=== PATIENT | female | born 1945 | race African-American/Black ===

== ENCOUNTER 2017-01-14 12:11 | Inpatient (IN) | payer OTHER, MEDICARE ==
[~2017-01-14] VITALS: Ht 162.6 cm; Wt 57.2 kg
--- NOTE | ~2017-01-14 | EKG ---
[address] [place] [address] ELECTROCARDIOGRAM REPORT Name: BRANDY BARGER Room #: 537-P ADM IN M.R.#: [id number] Admission: 01/14/17 Attend Phys: Siddharth Cook DO Discharge: Date of : 47 Report #: [id number] THIS REPORT FOR: //name// [facility] ED Test Date: 2017-01-14 Test Time: 12:38:41 Pat Name: BRANDY BARGER Department: Room: [facility] Gender: F Repairer Finished Metal: Bonnie COOPER : 1945 Requested By: Ayla Alexis Order Number: [id number] MD: Cj Camarillo Measurements Intervals [place] Rate: 99 P: 62 AR: 131 QRS: 5 QRSD: 71 T: 35 QT: 313 QTc: 402 Interpretive Statements Sinus rhythm No significant abnormality No previous ECG available for comparison Electronically Signed On 01-15-2017 9:26:03 CDT by Cj Camarillo [email or web address] <ELECTRONICALLY SIGNED> By: Cj Camarillo MD, [facility] 01/15/17 0926 1238 1238 Cj Camarillo MD, FACC /EPI
[2017-01-14 12:12] VITALS: BP 106/70
[2017-01-14 12:59] LABS: HEMATOCRIT 28.5 % (37.0-47.0); HEMOGLOBIN 9.6 gm/dL (12.0-15.0); MCH 31.3 pg (26.0-34.0); MCHC 33.7 g/dL (28.0-37.0); MCV 92.7 fL (80.0-100.0); RBC 3.07 mil/uL (4.20-5.00); RDW 14.1 % (10.5-14.5); WBC 3.5 thou/uL (4.0-11.0)
[2017-01-14 13:02] LABS: MANUAL DIFF YES
[2017-01-14 13:12] LABS: URINE BLOOD 2+ (Negative); URINE COLOR YELLOW; URINE GLUCOSE-RANDOM* NEGATIVE (Negative); URINE KETONES TRACE (Negative); URINE LEUKOCYTES-REFLEX NEGATIVE (Negative); URINE PROTEIN (DIPSTICK) 2+ (Negative); URINE SPECIFIC GRAVITY 1.025 (1.003-1.035)
[2017-01-14 13:14] LABS: ANION GAP 11 mmol/L (7-16); BUN 30 mg/dL (7-18); CALCIUM 8.4 mg/dL (8.5-10.1); CHLORIDE 109 mmol/L (98-107); CO2 21 mmol/L (21-32); CREATININE 1.6 mg/dL (0.6-1.0); GLUCOSE 87 mg/dL (74-106); SODIUM 141 mmol/L (136-145)
[2017-01-14 13:17] LABS: POTASSIUM 4.3 mmol/L (3.5-5.1)
[2017-01-14 13:19] LABS: MAGNESIUM 1.7 mg/dL (1.8-2.4); TROPONIN-I < 0.04 ng/mL (<0.04-0.07)
[2017-01-14 13:26] LABS: ICTOTEST (BILI CONFIRMATORY) Negative (Negative); URINE BILIRUBIN NEGATIVE (Negative)
[2017-01-14 14:04] LABS: FINE GRANULAR CASTS 4-10 Moderate /LPF (None Seen)
[2017-01-14 14:05] LABS: HYALINE CASTS 0-3 Few /LPF (None Seen); SQUAMOUS 0-3 Few /LPF (0-3); URINE RBC 3-10 Few /HPF (0-2); URINE WBC-REFLEX 0-5 Rare /HPF (0-5)
[2017-01-14 14:06] LABS: AMORPHOUS URATES Moderate /LPF (None Seen)
[2017-01-14 14:12] LABS: TOTAL CELL COUNT 100
[2017-01-14 14:13] LABS: PLATELET COUNT 89 thou/uL (150-400)
[2017-01-14 14:15] LABS: ANISOCYTOSIS SLIGHT
[2017-01-14 17:50] VITALS: BP 105/62
[2017-01-14 19:28] VITALS: BP 96/57
[2017-01-14] MEDS ORDERED: MEDROL DOSPAK21 TA1 (20:27)
[2017-01-14 21:54] VITALS: BP 90/49
[2017-01-15 04:13] LABS: HEMATOCRIT 26.5 % (37.0-47.0); MCHC 33.9 g/dL (28.0-37.0); MCV 91.4 fL (80.0-100.0); PLATELET COUNT 76 thou/uL (150-400); RDW 14.2 % (10.5-14.5); WBC 3.5 thou/uL (4.0-11.0)
[2017-01-15 04:20] LABS: MANUAL DIFF YES
[2017-01-15 04:34] LABS: CALCIUM 7.9 mg/dL (8.5-10.1); CREATININE 1.6 mg/dL (0.6-1.0); POTASSIUM 4.4 mmol/L (3.5-5.1)
[2017-01-15 07:34] VITALS: BP 91/57
[2017-01-15 08:37] LABS: LARGE PLATELETS FEW; PLATELET ESTIMATE DECREASED; TOTAL CELL COUNT 100
[2017-01-15 16:05] VITALS: BP 102/56
[2017-01-15 20:00] VITALS: BP 88/50
[2017-01-16] MEDS ORDERED: COZAAR 25 MG TA25 M1 PO (00:11)
[2017-01-16] MEDS ORDERED: PREDNISONE 5 MG5 M1 PO (00:12)
[2017-01-16] MEDS ORDERED: AZULFIDINE500 M1 PO (00:14)
[2017-01-16] MEDS ORDERED: CIMZIA400 MG/2 M SQ (00:19)
[2017-01-16] MEDS ORDERED: APAP500 PO (00:21)
[2017-01-16 04:00] VITALS: BP 104/54
[2017-01-16 05:02] LABS: HEMATOCRIT 24.2 % (37.0-47.0); HEMOGLOBIN 8.3 gm/dL (12.0-15.0); MCHC 34.1 g/dL (28.0-37.0); MCV 90.9 fL (80.0-100.0); PLATELET COUNT 74 thou/uL (150-400); RBC 2.67 mil/uL (4.20-5.00); WBC 2.7 thou/uL (4.0-11.0)
[2017-01-16 05:16] LABS: MANUAL DIFF YES
[2017-01-16 05:22] LABS: CALCIUM 7.6 mg/dL (8.5-10.1); CREATININE 1.3 mg/dL (0.6-1.0)
[2017-01-16 07:31] LABS: ABSOLUTE NEUTROPHILS 1.2 thou/uL (1.4-8.2); NUCLEATED RBCS 1 /100WBC; TOTAL CELL COUNT 100
[2017-01-16 07:35] VITALS: BP 108/68
[2017-01-16 09:59] LABS: URINE BILIRUBIN NEGATIVE (Negative); URINE BLOOD 1+ (Negative); URINE COLOR YELLOW; URINE GLUCOSE-RANDOM* NEGATIVE (Negative); URINE KETONES NEGATIVE (Negative); URINE LEUKOCYTES-REFLEX NEGATIVE (Negative); URINE PROTEIN (DIPSTICK) 1+ (Negative); URINE SPECIFIC GRAVITY 1.015 (1.003-1.035); URINE UROBILINOGEN 0.2 E.U./dl (0.2-1.0)
[2017-01-16 10:17] LABS: CASTS None Seen /LPF (None Seen); SQUAMOUS None Seen /LPF (0-3); URINE RBC None Seen /HPF (0-2)
[2017-01-16 10:18] LABS: CRYSTALS None Seen /LPF (None Seen); URINE WBC-REFLEX None Seen /HPF (0-5)
[2017-01-16 13:45] VITALS: BP 108/68
[2017-01-16 16:00] VITALS: BP 120/74
[2017-01-16 20:00] VITALS: BP 108/65
[2017-01-17 04:33] VITALS: BP 90/53
[2017-01-17 08:00] VITALS: BP 101/63
[2017-01-17 11:39] VITALS: BP 108/68
[2017-01-17 12:05] VITALS: BP 108/68
[2017-01-17 14:41] VITALS: BP 108/68
== END 2017-01-17 14:40 | disposition home health service (06) | DRG 682 ==
LOC: ER 12:11 → 4E 15:41 → 5S 15:41 → EROBS 15:41 → 5S 17:52 → 4E 01-16 08:48
PROVIDERS: Emergency Medicine; Family Medicine; Specialist
DX: N17.9 Acute kidney failure, unspecified (principal); E43 Unspecified severe protein-calorie malnutrition; R31.29 Other microscopic hematuria; I12.9 Hypertensive chronic kidney disease with stage 1 through stage 4 chronic kidney disease, or unspecified chronic kidney disease; M06.9 Rheumatoid arthritis, unspecified; N18.9 Chronic kidney disease, unspecified; Z68.21 Body mass index [BMI] 21.0-21.9, adult; Z79.899 Other long term (current) drug therapy
CPT/HCPCS: 10084; 10086

== ENCOUNTER 2017-06-13 21:08 | Emergency (ER) | payer OTHER, MEDICARE ==
[~2017-06-13] VITALS: Ht 162.6 cm; Wt 54.4 kg
[~2017-06-13 21:08] MED LIST: APAP500 PO; AZULFIDINE500 M1 PO; CIMZIA400 MG/2 M SQ; COZAAR 25 MG TA25 M1 PO; MEDROL DOSPAK21 TA1; PREDNISONE 5 MG5 M1 PO
[2017-06-13] MEDS ORDERED: LASIX 20 MG TAB20 MG PO ×2 (21:34→23:27)
[2017-06-13 22:52] LABS: HEMATOCRIT 26.6 % (37.0-47.0); HEMOGLOBIN 8.9 gm/dL (12.0-15.0); MCH 31.6 pg (26.0-34.0); MCHC 33.5 g/dL (28.0-37.0); MCV 94.4 fL (80.0-100.0); RBC 2.81 mil/uL (4.20-5.00); RDW 14.3 % (10.5-14.5); WBC 3.2 thou/uL (4.0-11.0)
[2017-06-13 22:59] LABS: CALCIUM 8.8 mg/dL (8.5-10.1); CREATININE 1.2 mg/dL (0.6-1.0)
== END 2017-06-13 23:35 | disposition home or self-care (01) ==
LOC: ER 21:08
PROVIDERS: Physician Assistant
DX: R60.0 Localized edema (principal); Z91.14 Patient's other noncompliance with medication regimen; M06.9 Rheumatoid arthritis, unspecified; I10 Essential (primary) hypertension

== ENCOUNTER → 2017-10-16 | Outpatient (CLI) | payer OTHER, MEDICARE ==
[~2017-10-16] MED LIST changes: +LASIX 20 MG TAB20 MG PO
== END ==
LOC: HYPER 10-09 16:06
DX: S81.802D Unspecified open wound, left lower leg, subsequent encounter (principal); L03.116 Cellulitis of left lower limb; R25.1 Tremor, unspecified; G37.9 Demyelinating disease of central nervous system, unspecified; M06.9 Rheumatoid arthritis, unspecified; M19.90 Unspecified osteoarthritis, unspecified site; I12.9 Hypertensive chronic kidney disease with stage 1 through stage 4 chronic kidney disease, or unspecified chronic kidney disease; N18.2 Chronic kidney disease, stage 2 (mild); Z86.718 Personal history of other venous thrombosis and embolism; X58.XXXD Exposure to other specified factors, subsequent encounter

== ENCOUNTER → 2017-11-21 | Outpatient (CLI) | payer OTHER, MEDICARE | LOC: HYPER 11-07 06:46 | DX: L03.116 Cellulitis of left lower limb (principal); I12.9 Hypertensive chronic kidney disease with stage 1 through stage 4 chronic kidney disease, or unspecified chronic kidney disease; N18.2 Chronic kidney disease, stage 2 (mild); M81.0 Age-related osteoporosis without current pathological fracture; G37.9 Demyelinating disease of central nervous system, unspecified; M06.9 Rheumatoid arthritis, unspecified; M19.90 Unspecified osteoarthritis, unspecified site; Z86.73 Personal history of transient ischemic attack (TIA), and cerebral infarction without residual deficits; Z98.49 Cataract extraction status, unspecified eye ==

== ENCOUNTER → 2018-06-10 | Outpatient (CLI) | payer OTHER, MEDICARE | LOC: HYPER 09:14 | DX: L97.821 Non-pressure chronic ulcer of other part of left lower leg limited to breakdown of skin (principal); I87.2 Venous insufficiency (chronic) (peripheral); L84 Corns and callosities; L29.9 Pruritus, unspecified; I12.9 Hypertensive chronic kidney disease with stage 1 through stage 4 chronic kidney disease, or unspecified chronic kidney disease; N18.2 Chronic kidney disease, stage 2 (mild); R25.1 Tremor, unspecified; M85.88 Other specified disorders of bone density and structure, other site; M81.0 Age-related osteoporosis without current pathological fracture; M06.9 Rheumatoid arthritis, unspecified; Z98.49 Cataract extraction status, unspecified eye; Z86.718 Personal history of other venous thrombosis and embolism ==

== ENCOUNTER → 2018-09-02 | Outpatient (CLI) | payer OTHER, MEDICARE | LOC: HYPER 06:46 | DX: L97.821 Non-pressure chronic ulcer of other part of left lower leg limited to breakdown of skin (principal); L84 Corns and callosities; L29.9 Pruritus, unspecified; I87.2 Venous insufficiency (chronic) (peripheral); I12.9 Hypertensive chronic kidney disease with stage 1 through stage 4 chronic kidney disease, or unspecified chronic kidney disease; N18.2 Chronic kidney disease, stage 2 (mild); R25.1 Tremor, unspecified; M85.88 Other specified disorders of bone density and structure, other site; M81.0 Age-related osteoporosis without current pathological fracture; M06.9 Rheumatoid arthritis, unspecified; Z86.718 Personal history of other venous thrombosis and embolism ==

== ENCOUNTER 2019-03-29 20:24 | Inpatient (IN) | payer OTHER, MEDICARE ==
[~2019-03-29] VITALS: Ht 152.4 cm; Wt 52.2 kg
--- NOTE | ~2019-03-29 | EMS ---
[place] [address] EMS Patient Care Report Name: BRANDY BARGER Room #: REG LEIGHANN Syed#: [id number] Admission: 03/29/19 Attend Phys: Discharge: Date of : 47 Report #: [id number] THIS REPORT FOR: //name// Report Transmitted: 03/29/2019 20:15 EMS Care Summary [place], [place]/[facility] Incident [id number] @ 03/29/2019 19:52 Incident [address] [place] [address] Patient BRANDY BARGER Female, 74 Years 1945 Patient Address [address] [place] [address] Patient History Hypertension,Arthritis,Tremors, Patient Allergies No known allergies, Patient Medications Losartan, Metoprolol, Aleve, Chief Complaint LEG PAIN Disposition Transported No Lights/[place] Dispatch Reason Sick Person Transported To [facility] Narrative M28 ARRIVES TO FIND 74 Y/O F PT COMPLAINING OF NONTRAUMATIC SWELLING AND PAIN OF HER LEFT LEG X 1 WEEK. ASSESSMENTS AND TREATMENTS NOTED. PT MOVED TO COT VIA EXTREMITY LIFT. PT MOVED TO AMBULANCE. PT TRANSPORTED. M28 [address] [address] EMS Patient Care Report Name: BRANDY BARGER Room #: REG LEIGHANN Syed#: [id number] Admission: 03/29/19 Attend Phys: Discharge: Date of : 47 Report #: [id number] ARRIVES AT DESTINATION. PT MOVED TO ROOM IN ED. PT MOVED TO BED IN ROOM VIA DRAWSHEET METHOD. PT CARE TRANSFERRED. M28 RETURNS TO SERVICE. Initial Vitals @20:08BP: 113/76,SpO2: 100, @20:10P: 102,R: 18,BP: 117/76,Pain: 10/10,GCS: 15,SpO2: 100,Revised Trauma: 12, Assessments @20:12MENTAL:No Abnormalities,SKIN:No Abnormalities,HEENT:Head/Face: No Abnormalities,Eyes: No Abnormalities,Neck/Airway: No Abnormalities,LUNG SOUNDS:General: No Abnormalities,Left Upper: No Abnormalities,Right Upper: No Abnormalities,Left Lower: No Abnormalities,Right Lower: No Abnormalities,ABDOMEN:General: No Abnormalities,Left Upper: No Abnormalities,Right Upper: No Abnormalities,Left Lower: No Abnormalities,Right Lower: No Abnormalities,PELVIS//GI:No Abnormalities,EXTREMITIES:Left Leg: Edema,Left Leg: Other,Left Arm: No Abnormalities,Right Arm: No Abnormalities,Right Leg: No Abnormalities,PULSE:NEURO:No Abnormalities,@20:13MENTAL:No Abnormalities,SKIN:No Abnormalities,HEENT:Head/Face: No Abnormalities,Eyes: No Abnormalities,Neck/Airway: No Abnormalities,LUNG SOUNDS:General: No Abnormalities,Left Upper: No Abnormalities,Right Upper: No Abnormalities,Left Lower: No Abnormalities,Right Lower: No Abnormalities,ABDOMEN:General: No Abnormalities,Left Upper: No Abnormalities,Right Upper: No Abnormalities,Left Lower: No Abnormalities,Right Lower: No Abnormalities,PELVIS//GI:No Abnormalities,EXTREMITIES:Left Leg: Other,Left Arm: No Abnormalities,Right Arm: No Abnormalities,Right Leg: No Abnormalities,PULSE:NEURO:No Abnormalities, Impression Extremity Pain Procedures @20:12ALS AssessmentResponse: UnchangedSucceeded Timeline 19:51,Call Received 19:51,Dispatch Notified 19:52,Dispatched 19:53,En Route 20:01,On Scene 20:02,At Patient 20:08,BP: 113/76 M,PULSE: ,RR: R,SPO2: 100 Ox,ETCO2: ,BG: ,PAIN: ,GCS: , 20:09,Depart Scene 20:10,BP: 117/76 M,PULSE: 102,RR: 18 R,SPO2: 100 Ox,ETCO2: ,BG: ,PAIN: 10,GCS: 15, 20:12,ALS Assessment,Response: UnchangedSucceeded, 20:21,[place] [address] EMS Patient Care Report Name: BRANDY BARGER Room #: [facility].#: [id number] Admission: 03/29/19 Attend Phys: Discharge: Date of : 47 Report #: [id number] 20:30,Call Closed Disclaimer v1.1 Copyright 2019 [employer] This EMS Care Summary contains data elements from the applicable legal record (which may be displayed differently). It is designed to provide pertinent information for the following purposes: continuity of care, clinical quality, and state data reporting. The complete legal record is available to ED staff and administrators of the receiving hospital in [facility]'s Patient Tracker. All data is provided "as is."
[~2019-03-29 20:24] MED LIST changes: -APAP500 PO; +TYLENOL EXTRA500 MG PO
[2019-03-29 20:26] VITALS: BP 122/61
[2019-03-29] MEDS ORDERED: NORCO 5-325 TA1 EAC1 PO (21:20)
[2019-03-29] MEDS ORDERED: MYSOLINE50 MG PO (21:22)
[2019-03-29] MEDS ORDERED: KLOR-CON 10 ER10 MEQ PO (21:23)
[2019-03-29] MEDS ORDERED: LOPRESSOR50 PO (21:24)
[2019-03-29] MEDS ORDERED: CHLORTHALIDONE25 MG PO (21:24)
[2019-03-29 21:57] LABS: HEMATOCRIT 27.4 % (37.0-47.0); MCH 31.8 pg (26.0-34.0); MCHC 32.9 g/dL (28.0-37.0); MCV 96.6 fL (80.0-100.0); PLATELET COUNT 62 thou/uL (150-400); RBC 2.84 mil/uL (4.20-5.00); RDW 17.2 % (10.5-14.5)
[2019-03-29 22:06] LABS: CALCIUM 8.5 mg/dL (8.5-10.1); CREATININE 1.8 mg/dL (0.6-1.0); POTASSIUM 4.8 mmol/L (3.5-5.1)
[2019-03-29 22:33] LABS: ABSOLUTE NEUTROPHILS 3.7 thou/uL (1.4-8.2); ANISOCYTOSIS 1+; LARGE PLATELETS FEW; PLATELET ESTIMATE DECREASED
[2019-03-29 23:35] VITALS: BP 101/54
[2019-03-30 00:32] VITALS: BP 105/57
[2019-03-30 00:40] VITALS: BP 115/62
[2019-03-30 04:23] LABS: HEMATOCRIT 22.4 % (37.0-47.0); HEMOGLOBIN 7.4 gm/dL (12.0-15.0); MCH 31.7 pg (26.0-34.0); MCHC 32.9 g/dL (28.0-37.0); MCV 96.3 fL (80.0-100.0); RBC 2.33 mil/uL (4.20-5.00); RDW 16.9 % (10.5-14.5); WBC 4.4 thou/uL (4.0-11.0)
[2019-03-30 04:40] LABS: CALCIUM 7.7 mg/dL (8.5-10.1); CREATININE 1.7 mg/dL (0.6-1.0); POTASSIUM 4.1 mmol/L (3.5-5.1)
[2019-03-30 06:29] VITALS: BP 126/61
[2019-03-30 07:15] VITALS: BP 100/47
--- NOTE | 2019-03-30 08:42 | NUR ---
ADMIT PT ADMITTED TO ROOM 453 FROM ED WITH LEFT FOOT VENOUS STASIS ULCER. ORDERS REVIEWED AND INITIATED, PT ORIENTED TO ROOM CALL LIGHT SYSTEM AND POC. CONSULTS CALLED IVF'S STARTED CONTINUE POC.
[2019-03-30 14:36] VITALS: BP 115/58
--- NOTE | 2019-03-30 14:40 | NUR ---
PATIENT ALERT X3, PAIN MANAGED WITH MEDICATION, REPOSITIONED TOLERATED. DRESSING C/D/I PICTURE TAKEN BY NIGHT NURSE. FALL PRECAUTIONS IN PLACE. FAMILY BEDSIDE. CALL LIGHT IN REACH.
[2019-03-30 20:30] VITALS: BP 153/60
--- NOTE | 2019-03-31 04:13 | NUR ---
Pt. rested quietly during the night when checked on during frequent rounds. She did c/o left leg wound pain and was medicated (see emar) with some relief noted. Bed alarm is on.
[2019-03-31 05:09] LABS: HEMATOCRIT 24.2 % (37.0-47.0); HEMOGLOBIN 7.9 gm/dL (12.0-15.0); MCH 31.3 pg (26.0-34.0); MCHC 32.6 g/dL (28.0-37.0); MCV 96.3 fL (80.0-100.0); RBC 2.52 mil/uL (4.20-5.00); RDW 16.6 % (10.5-14.5)
[2019-03-31 07:27] VITALS: BP 142/64
--- NOTE | 2019-03-31 07:30 | HC ---
[facility] [place] [address] CONSULTATION Name: BRANDY BARGER Room #: 453-P ADM IN M.R.#: [id number] Admission: 03/29/19 Attend Phys: Noel Sher MD Discharge: Date of : 47 Report #: [id number] THIS REPORT FOR: //name// CC: FAM unknown Noel Sher DATE OF SERVICE: 03/30/2019 INFECTIOUS DISEASE CONSULTATION ATTENDING PHYSICIAN: Dr. Sher. REASON FOR EVALUATION: Left lower extremity inflammatory eruption with wounds, likely a component of skin and soft tissue infection, cellulitis. HISTORY OF PRESENT ILLNESS: Chart reviewed, patient examined. This is a 74-year-old woman with known history of rheumatoid arthritis, spinal stenosis, lower extremity venous stasis insufficiency with dermatitis, who presented to the Emergency Room with complaints of progressive pain and swelling of the left lower extremity, development of relatively new ulcers, admitted difficult to ambulate. She noted had a venous ablation of the varicosity involving her left leg 03/19/2019, subsequently developed the wounds. This was done due to excessive edema. She had experienced some chills, although it is not clear if she had fevers, admitted to anorexia, poor p.o. intake. Denies significant pulmonary or gastrointestinal related complaints other than mildly elevated lactic acid of 2.5, placed empirically on antimicrobial with vancomycin. ALLERGIES: None known. MEDICATIONS: Currently include vancomycin, metoprolol, pantoprazole, p.r.n. hydrocodone. PAST MEDICAL HISTORY: As above noted, rheumatoid arthritis, hypertension, spinal stenosis, previous back surgery, C-sections x 2. SOCIAL HISTORY: Nonsmoker, no ethanol, no illicit drug use. FAMILY HISTORY: Noncontributory. REVIEW OF SYSTEMS: Otherwise unremarkable 10-point review of systems with exception of the above. PHYSICAL EXAMINATION: GENERAL: Appears somewhat chronically ill, undernourished, is pleasant, cooperative. She is not encephalopathic. She is in [id number] distress. VITAL SIGNS: Temperature max 100.3, more recently 98.1, pulse 78, respirations [address] [address] CONSULTATION Name: BRANDY BARGER Room #: 453- ADM IN M.R.#: [id number] Admission: 03/29/19 Attend Phys: Noel Sher MD Discharge: Date of : 47 Report #: [id number], blood pressure 126/61. SKIN: Warm, dry. HEENT: Normocephalic. Extraocular muscles intact. NECK: Supple. LUNGS: Diminished breath sounds, otherwise clear. HEART: Regular, has some ectopy and soft systolic murmur. ABDOMEN: Soft, nontender, nondistended. EXTREMITIES: No cyanosis. Does have lower extremity edema, did review the photographs taken of the wound over the anterior distal aspect of the leg proximal foot, moderate degree of slough. There is certainly a change consistent with chronic venous stasis insufficiency, dermatitis. GENITOURINARY AND RECTAL: Deferred. LABORATORY DATA: Electrolytes: Sodium 144, potassium 4.8, chloride 111, bicarbonate 25, anion gap of 8, BUN and creatinine 38 and 1.8, glucose of 101. Estimated GFR of 33. CRP elevated at 13.4. Venous Doppler of lower extremity showed no evidence of DVT. CBC: White count of 5.0, H and H 9.0, 27.4, platelets of 62 and 1% bands. ASSESSMENT: 1. Inflammatory eruption involving the left lower extremity. She has had recent surgery. Certainly would be concerned about skin and soft tissue infection. 2. New onset ulcer. Cultures have been collected. We will continue empiric therapy with vancomycin, presuming a Staph or strep etiology. She is not overtly toxic at this point. Clearly, she has a degree of immunosuppression. She is undernourished. She has had weight loss. Try to optimize her nutritional status at this point, continue wound care as prescribed, may well need debridement, elevation and compression when tolerable. <ELECTRONICALLY SIGNED> By: Solomon Foster MD 03/31/19 0730 0706 0801 Solomon Foster MD /nt
--- NOTE | 2019-03-31 13:57 | NUR ---
Received awake on bed. Due medications given as prescribed, able to swallow tablets w/o difficulty. A+O. With relative at bedside. On room air. Vital signs taken and recorded. With occassional incontinence, able to use bedpan to pass urine. With NS at 100cc/hr, infusing well at L AC- intact. Assisted in ADLs. With wound at Left lower leg, dressing C/D/I- a/w wound doctor's rounds and advise.
[2019-03-31 14:14] VITALS: BP 120/55
--- NOTE | 2019-03-31 15:17 | NUR ---
WOUND CONSULT; ROUNDING WITH DR JEANNETTE PÉREZ. THE LEFT MEDIAL LEG WOUND RE; VEIN OBLATION THERAPY. THE WOUND IS TENDER, CELLULITIC AND DRAINING PALE YELLOW DRAINAGE. RECOMMENDATIONS; AQUACEL AG TO WOUND BED, COVER WITH ABD, SECURE WITH KERLIX AND ANGELA WRAP. DAILY/PRN DISCUSSED WITH JIMMY
--- NOTE | 2019-03-31 16:18 | NUR ---
PT ADMITTED RELATED TO LOWER EXTREMITY VENOUS STASIS. CM REVIEWED CHART AND SPOKE WITH CARE TEAM. CM MET WITH PT AND SISTER AT BEDSIDE THIS DAY. PT IS A&O X4. CM ROLE INTRODCUED. PT INDICATED SHE LIVES IN A HOUSE WITH HER SISTER WITH 1 STEP TO ENTER AND 13 STEPS INSIDE. PT INDICATED SHE HAD USED A CANE AND A FWW TO ASSIST WITH MOBILITY MEDICAL STAFF SERVICES COORDINATOR. PT INDICATED SHE HAD [facility] IN THE PAST. PT'S SISTER HAD TOURED [facility] AND WAS INTERESTED IN REFERRAL BEING MADE THERE. CM ALSO PROVIDED SNF LIST SHOULD SKILLED POST ACUTE CARE STAY BE MORE APPROPRIATE. CM TO FOLLOW INDICATED WITH DC PLANNING.
[2019-03-31 20:35] VITALS: BP 117/57
[2019-04-01 02:13] LABS: URINE CLARITY CLEAR; URINE COLOR YELLOW
[2019-04-01 02:14] LABS: BACTERIA 1-9 Few /HPF (None Seen); MUCUS 4-6 Moderate strn/LPF (None Seen); SQUAMOUS 4-10 Moderate /LPF (0-3); URINE BILIRUBIN NEGATIVE (Negative); URINE BLOOD TRACE (Negative); URINE GLUCOSE-RANDOM* NEGATIVE (Negative); URINE KETONES NEGATIVE (Negative); URINE LEUKOCYTES NEGATIVE (Negative); URINE NITRITE NEGATIVE (Negative); URINE PROTEIN (DIPSTICK) 1+ (Negative); URINE RBC 0-2 Rare /HPF (0-2); URINE UROBILINOGEN 0.2 E.U./dl (0.2-1.0); URINE WBC 0-5 Rare /HPF (0-5)
[2019-04-01 02:15] LABS: CASTS None Seen /LPF (None Seen); CRYSTALS None Seen /LPF (None Seen)
--- NOTE | 2019-04-01 05:30 | NUR ---
Assumed care of pt @1900. pt a&ox4. pt is incont and can be cont with constant reminder to call for assistance. Pt is on iv vanco & ceft. L AC iv leaking so it was d/c. this nurse and 2 other nurses tried to insert a new iv but was unsuccessful. will try again at a later time. pt c/o of l leg pain and was medicated per emar. no s/s of distress, no fever overnight. pt has an order for a 24hr urine magnessium test which is to be started at 0800. wound dressing clean, dry and intact. vss stable. will cont to monitor
[2019-04-01 06:12] LABS: FOLIC ACID 4.8 ng/mL (8.6-58.9)
[2019-04-01 08:00] VITALS: BP 119/58
--- NOTE | 2019-04-01 14:30 | NUR ---
[facility] INDICATED THAT THEY ARE ABLE TO ACCEPT PT FOR ADMISSION ONCE MEDICALLY STABLE. CARE TEAM ANTICIPATE DC TOMORROW. PT AND SISTER FELICITA ARE AWARE AND AGREEABLE. CM TO FOLLOW INDICATED WITH DC PLANNING.
[2019-04-01 15:00] VITALS: BP 146/68
--- NOTE | 2019-04-01 17:56 | HC ---
[facility] [place] [address] CONSULTATION Name: BRANDY BARGER Room #: 453-P [facility] IN M.R.#: [id number] Admission: 03/29/19 Attend Phys: Ze Bob Discharge: Date of : 47 Report #: [id number] THIS REPORT FOR: //name// CC: FAM unknown Ze Bob DATE OF SERVICE: 03/31/2019 CHIEF COMPLAINT: Ulcer, left medial ankle. HISTORY OF PRESENT ILLNESS: This is a 74-year-old female patient with whom I am familiar from evaluation some time ago. She has a history of venous dermatitis. She was seen by a vein specialist at [facility] and underwent a venous ablation injection on 03/19/2019. She has developed increasing pain, swelling and redness in her left leg and was admitted to the hospital. I have been asked to see with regard to wound care. The patient does have some pain in her leg and states that the swelling and drainage worsened after the injection. PAST MEDICAL HISTORY: Positive for rheumatoid arthritis, spinal stenosis, hypertension. SOCIAL HISTORY: Negative for alcohol or tobacco use. FAMILY HISTORY: Noncontributory. ALLERGIES: None. MEDICATIONS: Include acetaminophen, ceftriaxone, chlorthalidone, hydrocodone, metoprolol, pantoprazole, prednisone, primidone, and vancomycin. REVIEW OF SYSTEMS: CONSTITUTIONAL: The patient denies fever, chills or weight loss. NEUROLOGICAL: The patient denies focal weakness, numbness or tingling. EYES: The patient denies visual changes, redness, or drainage. ENT: The patient denies earache, nasal drainage or sore throat. CARDIOVASCULAR: The patient denies chest pain or palpitations or diaphoresis. PULMONARY: The patient denies cough or shortness of breath. GASTROINTESTINAL: The patient denies nausea, vomiting, diarrhea or abdominal pain. ORTHOPEDIC: The patient does have pain, swelling, drainage from her left leg. Other systems in a 14-point review of systems are negative. PHYSICAL EXAMINATION: VITAL SIGNS: At this time include pulse 67, respiratory rate 18, blood pressure 120/55, temperature 98.7. [facility] [address] [place] [address] CONSULTATION Name: BRANDY BARGER Room #: 453-P [facility] IN ..#: [id number] Admission: 03/29/19 Attend Phys: Ze Bob Discharge: Date of : 47 Report #: [id number] GENERAL: This is a chronically ill-appearing female patient who appears to be in minimal distress. HEENT: Head normocephalic. Nose and throat are clear. NECK: Supple. She does have somewhat hunched over. LUNGS: Diminished. HEART: Regular rate and rhythm. ABDOMEN: Bowel sounds present. EXTREMITIES: Lower extremities demonstrate easily palpable distal pulses. There is a circular ulcer covered with a moderate amount of slough involving the left medial ankle. There is venous stasis dermatitis, warmth and some evidence of cellulitis involving the left lower leg and a small ulceration more proximal likely the injection site. Dorsalis pedis pulses 2+/4+ on both lower extremities. NEUROLOGIC: The patient is alert and does move all 4 extremities spontaneously. LABORATORY DATA: Include white blood cell count 7.0 with hemoglobin of 7.9, hematocrit 24.2. Sodium 145, potassium 4.1, chloride 115, CO2 of 22, BUN 36, creatinine 1.7. CLINICAL IMPRESSION: 1. Venous ulceration, left lower extremity. 2. Venous stasis dermatitis. 3. Status post venous ablation injection 03/19/2019. 4. Cellulitis, left lower extremity. RECOMMENDATIONS: Agree with current empiric antibiotics pending culture and sensitivity that was obtained yesterday. We will recommend silver alginate to the areas of open ulceration and gentle compression with Kerlix and Robert wrap. Recommend elevation of the extremities, nutritional support, PT, OT as she can tolerate. I appreciate being asked to see her in consultation. <ELECTRONICALLY SIGNED> By: Sergey Hernandez MD 04/01/19 1756 1731 1311 Sergey Hernandez MD /nt
--- NOTE | 2019-04-01 18:00 | NUR ---
ASSUMED CARE OF PATIENT AT 0715, PATIENT ALERT AND X 3, PATIENT IS TOTAL CARE, WITH SET UP FOR MEALS. PATIENT C/O PAIN WITH LEFT LEG MOST OF THE DAY. WOUND CARE SAW THE PATIENT, AND CHANGED WOUND CARE ORDERS. PATIENT CONTINUES TO RECEIVE IV ANTIBIOTICS, FOLLEWED BY DR JOHANSEN. PATIENT IS INCONTINENT OF B/B. 24HR URINE ORDERED, UNABLE TO OBTAIN, DUE TO PATIENT BEING INCONTINENT. PATOENT HAS RIGHT FOREARM IV IN PLACE. LEFT LEG WOUND DRESSING CHANGED PER NURSE THIS SHIFT, WOUND CARE ORDERS CHANGED, TEMP DRESSING APPLIED, WAITING ON NEW MEDICAATION, NOT DELIVERED UNTIL 1900, NIGHTSHIFT WILL APPLY MEDICATION WITH DRESSING CHANGE. MULTIPLE FAMILY MEMBERS AT BEDSIDE THROUGHOUT THE SHIFT. SPOKE WITH [facility] ABOUT ADMISSION, INFORMED HER NO DISCHARGE TODAY. WILL CONTINUE TO MONITOR.
[2019-04-01 20:08] VITALS: BP 123/58
--- NOTE | 2019-04-02 04:01 | NUR ---
Assessments completed. pt a&ox4. max assist transfer from chair to bed. pt is incont. unable to obtain 24hr urine sample due to incont. pt unable to use call light. staff anticipates needs. family and pt concern about going to rehab. they stated, pt might still be too weak for rehab. pt is a q2turn and require assistance with meals. fall prec in place. pain meds given per emar. wound dressing changed per new orders. will cont to monitor
[2019-04-02 07:30] VITALS: BP 135/67
[2019-04-02 14:22] VITALS: BP 125/57
--- NOTE | 2019-04-02 15:34 | NUR ---
PT HAS BEEN ACCEPTED FOR ADMISSION TO ONCE MEDICALLY STABLE. PT MAY BE HAVING REPEAT I&D. CM TO FOLLOW INDICATED WITH DC PLANNING.
[2019-04-02 19:32] VITALS: BP 123/54
--- NOTE | 2019-04-02 19:41 | NUR ---
ASSUMED CARE OF PATIENT AT 0715, PATIENT ALERT AND ORIENTED X3. PATIENT CONTINUES TO C/O PAIN WITH LEFT LOWER LEG, RECEIVED HYDROCODONE 1 TABLET X2 THIS SHIFT AND TYLENOL 650 MG X 1 THIS SHIFT. PATIENT WENT DOWN FOR MRI OF LEFT LOWER LEG. CONSULT FOR ORTHO CALLED, SPOKE WITH ADAM/JAUN. RECEIVED CALL BACK FROM ADAM/JAUN FOR ORTHO, PATIENT WILL BE NPO AFTER MIDNIGHT FOR DEBRIDEMENT OF LEFT LEG TOMORROW. PATIENT STARTED NEW IV ANTIBIOTIC/ZOSYN TODAY. PATIENT CONTINUES TO HAVE RIGHT FOREARM IV IN PLACE. WOUND CARE DONE AND PICTURE OF WOUND DONE. FAMILY UPDATED OF NEW ORDERS. FSMILY DONT HAVE COPY OF AD, CONSULT IN FOR CM FOR ADVANCE DIRECTIVE. WILL CONTINUE TO MONITOR.
--- NOTE | 2019-04-03 02:15 | NUR ---
ASSUMED CARE AROUND 190O. AXOX2. FEVER NOTED IN THE BEGGING OF THE SHIFT. TREATED WITH TYLENOL. TRENDING. KEPT NPO AFTER MIDNIGHT FOR SURGERY IN AM. PERSISTENT INCONTINENCE. NO S/S ACUTE DISTRESS NOTED OR REPORTED AT THIS TIME. WILL CONT TO MONITOR FOR ANY CHAANGES IN CONDITION.
[2019-04-03 03:53] LABS: HEMATOCRIT 22.8 % (37.0-47.0); HEMOGLOBIN 7.5 gm/dL (12.0-15.0); MCH 31.3 pg (26.0-34.0); MCHC 32.8 g/dL (28.0-37.0); MCV 95.3 fL (80.0-100.0); PLATELET COUNT 70 thou/uL (150-400); RBC 2.39 mil/uL (4.20-5.00); RDW 16.6 % (10.5-14.5); WBC 5.9 thou/uL (4.0-11.0)
[2019-04-03 04:15] VITALS: BP 128/59
[2019-04-03 07:15] LABS: ABSOLUTE NEUTROPHILS 4.6 thou/uL (1.4-8.2); PLATELET ESTIMATE DECREASED
[2019-04-03 07:16] LABS: ANISOCYTOSIS 1+; LARGE PLATELETS FEW
[2019-04-03 08:00] VITALS: BP 133/62
[2019-04-03 09:51] LABS: CALCIUM 7.8 mg/dL (8.5-10.1); CREATININE 1.4 mg/dL (0.6-1.0); POTASSIUM 4.7 mmol/L (3.5-5.1)
--- NOTE | 2019-04-03 15:56 | NUR ---
PT LEFT FOR PRE-OP AROUND 1100 AND RETURNED APPROXIMATELY 1400. PT IS CALM AND DROWSY BUT EASLIY AROUSABLE. FAMILY IS AT BEDSIDE
[2019-04-03 16:13] VITALS: BP 130/83
--- NOTE | 2019-04-03 17:56 | NUR ---
PT C/O LLE PAIN. PT DROWSY. TYLENOL GIVEN INSTEAD OF HYDROCODONE. PT'S FOOT REMAINS WARM WITH A PALPABLE 2+ PULSE.
[2019-04-03 19:18] VITALS: BP 131/67
[2019-04-03 23:41] VITALS: BP 129/65
[2019-04-04 03:25] VITALS: BP 141/61
[2019-04-04 05:37] LABS: HEMATOCRIT 25.1 % (37.0-47.0); HEMOGLOBIN 8.2 gm/dL (12.0-15.0)
[2019-04-04 05:41] LABS: POTASSIUM 4.7 mmol/L (3.5-5.1)
--- NOTE | 2019-04-04 06:33 | NUR ---
ASSUMED CARE AROUND 1899. AXOX3. PAIN TX PER MD ORDER. LOW GRADE FEVER TX WITH TYLENOL. LLE DRESSING CDI. NO S/S ACUTE DISTRESS NOTED OR REPORTED AT THIS TIME. WILL CONT TO MONITOR FOR ANY CHANGES IN CONDITION.
[2019-04-04 08:00] VITALS: BP 122/67
[2019-04-04 14:12] VITALS: BP 115/64
--- NOTE | 2019-04-04 14:23 | NUR ---
PT HAD REPEAT I&D TOMORROW. CARE TEAM ANTICIPATES THAT PT WILL LIKELY BE MEDICALLY STABLE TO DISCHARGE TO [facility] SUNDAY. CM TO FOLLOW INDICATED WITH DC PLANNING.
--- NOTE | 2019-04-04 14:51 | NUR ---
Nutrition: Following for oral intake, supplement usage. Pt has been eating 50-75% of some recent meals this week, with a couple meal refusals here and there. Despite these meal refusals at times, pt has been drinking 100% of 2 supplements daily. 2 Ensure Enlives daily adds an extra 700 kcals, 40g protein helping to make up for any missed/low intake meals. She was NPO/on clear liquids yesterday briefly, but able to resume solid PO of heart healthy diet this AM. Reports eating decently for lunch. Reminded pt of main goal to prioritize her protein first through meat, dairy, eggs, nut butter, and Ensure - leaving other side dishes for last. With diet order changes, supplement order was dc'ed. Plan to resume Ensure Enlive BID today. Per chart, pt has been accepted to rehab [facility] once medically stable. Despite sporadic po intake at times, changing to low nutrition risk given success with added supplement intervention/appetite progress. Will reassess upon later rehab transfer too.
--- NOTE | 2019-04-04 16:13 | NUR ---
PATIENT ALERT AND ORIENTED X 4. VERY PLEASANT AND COOPERATIVE. HYDROCODONE HELPFUL FOR LEFT LEG/FOOT PAIN. ON BEDREST. SAT UP ON SIDE OF BED WITH PHYSICAL THERAPY. TOLERATING DIET. HAD LARGE BM THIS AM. REMAINS INCONTINENT. PERICARE GIVEN. NO SKIN BREAKDOWN NOTED. WOUND CARE APPLIED WOUND VAC TO LEFT LOWER LEG/ANKLE. TURNED Q2H. OFF LOADED HEELS. NO PLANS TO DISCHARGE THIS WEEKEND. FALL PRECAUTIONS IN PLACE.
[2019-04-04 19:52] VITALS: BP 141/59
--- NOTE | 2019-04-05 04:19 | NUR ---
Pt. has rested quietly during the night when checked on during frequent rounds. She has been offered pain meds several times during the shift, but pt. denies needing anything for pain. Pt. turned and repositioned for comfort. Wound vac and dressing to left ankle area is intact. Bed alarm is on.
[2019-04-05 05:37] VITALS: BP 143/66
[2019-04-05 07:42] VITALS: BP 129/59
[2019-04-05 15:00] VITALS: BP 135/70
[2019-04-05 19:29] VITALS: BP 153/78
--- NOTE | 2019-04-05 20:21 | NUR ---
ASSUMED CARE OF PATIENT AT 0715, PATIENT ALERT AND ORIENTED. PATIENT ON BEDREST. C/O PAIN WITH LEFT LOWER LEG, RECEIVED HYDROCODONE 1 TABLET GIVEN X 2 THIS SHIFT. PATIENT HAS WOUND VAC TO LEFT LOWER LEG, DRESSING C/D/I. PATIENT HAS FEMALE CATHETER IN PLACE, HAS BEEN CHANGED X 3 THIS SHIFT DUE TO STOOL NOTED ON THE CATHETER. PATIENT HAS RIGHT AC IV IN PLACE, RECEIVING IV ANTIBIOTICS/ZOSYN. DAUGHTER AT BEDSIDE PART OF THE SHIFT. DR LINO HERE TO DAY, STATES PATIENT MAY GO TO REHAB ON SUNDAY. WILL CONTINUE TO MONITOR. PATIENT REFUSED BATH TODAY.
[2019-04-06 05:15] VITALS: BP 126/63
--- NOTE | 2019-04-06 05:25 | NUR ---
Pt. rested quietly during the night when checked on during frequent rounds. Po tylenol given left leg pain/low grade temperature (see emar) with some relief noted. Also, hydrocodone given later for c/o left leg pain (see emar) with some relief of pain. She has been turned and repositioned. Female external catheter is in place. Wound vac and dressing to left ankle area is intact. Bed alarm is on.
[2019-04-06 07:00] VITALS: BP 116/61
[2019-04-06 15:27] VITALS: BP 104/68
[2019-04-06 18:24] LABS: HEMATOCRIT 23.9 % (37.0-47.0); HEMOGLOBIN 7.9 gm/dL (12.0-15.0); MCH 31.4 pg (26.0-34.0); MCHC 33.1 g/dL (28.0-37.0); MCV 94.9 fL (80.0-100.0); RBC 2.52 mil/uL (4.20-5.00); RDW 15.6 % (10.5-14.5); WBC 6.6 thou/uL (4.0-11.0)
--- NOTE | 2019-04-06 19:36 | NUR ---
ASSUMED CARE 0700, ALERT X3, SLEEPY AND WEAK, TURNED 2QHOURS TOLERATED. EXTERNAL FEMALE CATH IN PLACE. BM TODAY. PAIN MANAGED WITH MEDICATIONS, DECREASE APTITITE. ENCOURAGED SUPPLEMNT. WOUND VAC IN PLACE DRESSING C/D/I. CALL LIGHT IN REACH. STAFF TO ANTICIPATE NEEDS. FALL PRECAUTIONS IN PLACE.
[2019-04-06 19:40] VITALS: BP 116/67
[2019-04-07 03:46] VITALS: BP 138/81
--- NOTE | 2019-04-07 05:26 | NUR ---
Pt. rested quietly during the night when checked on during frequent rounds. She c/o left lower extremity pain and has been medicated for pain (see emar) with some relief noted. Wound vac and dressing intact to left lower extremity. Pt. turned and repositioned. Bed alarm is on.
[2019-04-07 07:21] VITALS: BP 124/73
[2019-04-07] MEDS ORDERED: CEFEPIME 22 GM/100 M IV (09:51)
[2019-04-07] MEDS ORDERED: ZINC SULFATE 2220 M1 PO (09:52)
[2019-04-07] MEDS ORDERED: PREDNISONE 5 MG5 M1 PO (09:53)
[2019-04-07] MEDS ORDERED: PROTONIX 20 MG20 M1 PO (09:53)
[2019-04-07] MEDS ORDERED: VITAMINC500 PO (09:53)
[2019-04-07] MEDS ORDERED: FOLIC ACID1 MG PO (09:53)
--- NOTE | 2019-04-07 12:09 | NUR ---
PT ALERT, PAIN MANAGED WITH MEDICATIONS, WOUND VAC C/D/I, WILL DC [facility]. ATE 50% OF MORNING MEAL 100% SUPPLIMENT. FAMILY BEDSIDE. REPORTED OFF TO REHAB NURSE. SLOW PROGRESSION. FALL PRECAUTIONS IN PLACE.
[2019-04-08 12:11] LABS: URINE MAGNESIUM-mg/24hr 35.2 mg/24 hr (12.0-293.0); URINE MAGNESIUM-mg/dl 6.4 mg/dL (Not Estab.)
--- NOTE | 2019-04-25 14:30 | O ---
[facility] [place] [address] OPERATIVE REPORT Name: BRANDY BARGER Room #: 453-P [facility] IN M.R.#: [id number] Admission: 03/29/19 Attend Phys: Ze Bob Discharge: 04/07/19 Date of : 47 Report #: [id number] THIS REPORT FOR: //name// CC: FAM unknown Ze Bob DATE OF SERVICE: 04/03/2019 PREOPERATIVE DIAGNOSIS: Left ankle chronic wound and abscess. POSTOPERATIVE DIAGNOSIS: Left ankle chronic wound and abscess. PROCEDURE: Left ankle distal leg abscess irrigation and debridement. SURGEON: Kali Naik M.D. ANESTHESIA: General. ESTIMATED BLOOD LOSS: Minimal. DRAINS: No drains. The wound was packed open. COMPLICATIONS: There were no complications. DESCRIPTION OF PROCEDURE: The patient brought to the operating room where she was placed under general anesthesia. Once under adequate general anesthesia, her left lower extremity was prepped and draped in sterile manner. The extremity was elevated and tourniquet placed to 300 mmHg. An incision proximal to the patient's wound was made with abundant purulence emanating from the leg at that point. There was a definite pocket of purulence there, which was extended down to the wound itself. The necrotic tissue and the wound was then debrided with Clark scissors and completely removed. This was down to the fascia of the leg. Once complete, the wound was irrigated copiously with normal saline with pulsatile lavage. The wound was then closed proximally with 2-0 nylon distally, was left open and packed. The wound was dressed with a wet to dry dressing, ABDs and an Robert bandage. Tourniquet was let down at 15 minutes. Toes were pink and warm with good capillary refill. There were no complications from the procedure. The patient tolerated the procedure well and went to recovery room without incident. <ELECTRONICALLY SIGNED> By: Kali Naik MD 04/25/19 1430 1320 [id number] Kali Naik MD /nt
== END 2019-04-07 14:31 | DRG 853 ==
LOC: ER 20:24 → EROBS 23:15 → 4W 23:15
PROVIDERS: Anesthesiology; Emergency Medicine; Nurse Practitioner; Nurse Practitioner Family; Orthopaedic Surgery Foot and Ankle Surgery; Specialist; ADMIT Hospitalist
PROC: 0JBP0ZZ Excision of Left Lower Leg Subcutaneous Tissue and Fascia, Open Approach (ICD-10-PCS; principal; 2019-04-03)
DX: A41.9 Sepsis, unspecified organism (principal); E43 Unspecified severe protein-calorie malnutrition; L03.116 Cellulitis of left lower limb; N17.9 Acute kidney failure, unspecified; L02.416 Cutaneous abscess of left lower limb; I87.2 Venous insufficiency (chronic) (peripheral); N18.3 Chronic kidney disease, stage 3 (moderate); I12.9 Hypertensive chronic kidney disease with stage 1 through stage 4 chronic kidney disease, or unspecified chronic kidney disease; R25.1 Tremor, unspecified; B96.4 Proteus (mirabilis) (morganii) as the cause of diseases classified elsewhere; D69.6 Thrombocytopenia, unspecified; B96.5 Pseudomonas (aeruginosa) (mallei) (pseudomallei) as the cause of diseases classified elsewhere; B95.4 Other streptococcus as the cause of diseases classified elsewhere; B95.2 Enterococcus as the cause of diseases classified elsewhere; M06.9 Rheumatoid arthritis, unspecified; Z68.22 Body mass index [BMI] 22.0-22.9, adult; Z98.891 History of uterine scar from previous surgery; Z79.899 Other long term (current) drug therapy; Z23 Encounter for immunization
CPT/HCPCS: 10040; 50010; 50101; 50386; 57091; 62110; 62900; 70005

== ENCOUNTER 2019-04-01 11:50 | Inpatient (IN) | payer OTHER, MEDICARE ==
[~2019-04-01] VITALS: Ht 162.6 cm; Wt 54.2 kg
[~2019-04-01 11:50] MED LIST changes: +CHLORTHALIDONE25 MG PO; +KLOR-CON 10 ER10 MEQ PO; +LOPRESSOR50 PO; +MYSOLINE50 MG PO; +NORCO 5-325 TA1 EAC1 PO
[2019-04-07] MEDS ORDERED: CEFEPIME 22 GM/100 M IV (09:51)
[2019-04-07] MEDS ORDERED: ZINC SULFATE 2220 M1 PO (09:52)
[2019-04-07] MEDS ORDERED: PREDNISONE 5 MG5 M1 PO (09:53)
[2019-04-07] MEDS ORDERED: FOLIC ACID1 MG PO (09:53)
[2019-04-07] MEDS ORDERED: VITAMINC500 PO (09:53)
[2019-04-07] MEDS ORDERED: PROTONIX 20 MG20 M1 PO (09:53)
[2019-04-07 14:30] VITALS: BP 121/62
[2019-04-07 19:34] VITALS: BP 123/57
--- NOTE | 2019-04-07 19:45 | NUR ---
PT ADMITTED TO ROOM 511 FOR LLE CELLULITIS WITH POSSIBLE SEPSIS AND MEDICAL COMPLEXITY WITH GENERAL DEBILITY. NOTIFIED WOUND DOCTOR CAME WITH WOUND NURSE. ADMISSION PICTURE TAKEN AND WOUND NURSE CAME CHANGE WOUND VAC. PT ALERT AND ORIENTED X3, LITTLE FORGETFUL. VITALS STABLE ON RA. C/O LEFT ANKLE PAIN 6/10, PRN HYDROCODONE GIVEN. REASSESSMENT PER CHART. IV SL ON RIGHT AC. CONTINUE TO BE ON CEFEPIN ABT FOR ULCER INFECTION HAS LOOSE STOOL INCONT THIS EVENING. ASSISTED TO BED AND CLEANSED UP WITH 3X STAFF. SKIN ON BUTTOCK INTACT AT THIS MOMENT. ENCOURAGE PT TO TURN WHILE IN BED. GAVE REPORT TO NIGHT NURSE TO CONTINUE TO MONITOR. ORIENTED TO THE UNIT. OT/ST/PT WILL COME AND EVALUATE PT IN THE AM. DISCUSSED ABOUT REHAB SCHEDULE TO PT AND HER DAUGHTER. PT READ [facility] EDUCATION, DAUGHTER SIGNNED ADMISSION CONSENT. PHYSICIANS CONSULT CALLED. LOWER AIR LOSS MATTRESS APPLIED. ENCOURAGED PT TO TURN Q2HRS. PT WAS USING EXTERNAL FEMALE CATH ON ACUTE. GAVE REPORT TO NIGHT NURSE TO CONTINUE TO MONITOR.
--- NOTE | 2019-04-08 01:23 | NUR ---
PT ALERT AND ORIENTED X 4. WOUND VAC INTACT TO LEFT ANKLE. PT C/O PAIN IN LEFT ANKLE. REFUSED PAIN MEDS WHEN OFFERRED. INCONT OF URINE. EXTERNAL CATHETER PLACED. HANDS ARE CONTRACTED. BED ALARM ON FOR SAFETY. PT APPEARS TO BE SLEEPING ON HOURLY ROUNDS. TURNED Q2H.
[2019-04-08 06:04] LABS: RBC 2.2 mil/uL (4.20-5.00)
[2019-04-08 06:06] LABS: HEMATOCRIT 20.9 % (37.0-47.0); HEMOGLOBIN 7.1 gm/dL (12.0-15.0); MCH 32.2 pg (26.0-34.0); MCHC 33.8 g/dL (28.0-37.0); RDW 15.3 % (10.5-14.5); WBC 5.8 thou/uL (4.0-11.0)
[2019-04-08 06:12] LABS: POTASSIUM 4.3 mmol/L (3.5-5.1)
[2019-04-08 08:00] VITALS: BP 109/65
[2019-04-08 12:45] LABS: % SATURATION 24 % (20-39); IRON 20 ug/dL (50-170); TIBC 84 ug/dL (250-450)
--- NOTE | 2019-04-08 13:25 | NUR ---
team meeting, recommendation: re team
--- NOTE | 2019-04-08 15:23 | NUR ---
ASSUMED CARE OF PT AT 0800. PT IS A&OX3. IS ON ROOM AIR. REPORTS PAIN IN LEFT ANKLE THAT IS BEING MANAGED WITH ORAL PAIN MEDS. PT REPORTS INCREASED PAIN WHEN LEG IS IN DEPENDENT POSITION & WHEN STANDING. WOUND VAC INTACT. TO MEPILEX DRSG INTACT WELL. PT HAS BILAT LE EDEMA. PT IS A MAX ASSIST OF 2 TO STAND & TRANSFER. FALL PRECAUTIONS & HOURLY ROUNDING CONTINUED THIS SHIFT. LABS & VITALS REVIEWED. PT HAS GROSS TREMORS & RA & REQUIRES MOD ASSIST WITH FEEDING, DRESSING & BATHING. PT IS INCONT OF B&B. IS TURNED Q2H. BILAT LE ELEVATED. PT IS CURRENTLY SLEEPING. CALL LIGHT WITHIN REACH. ALL NEEDS MET AT THIS TIME. PT IS STABLE.
[2019-04-08 22:34] VITALS: BP 180/58
[2019-04-08 22:39] VITALS: BP 145/72
--- NOTE | 2019-04-09 00:20 | NUR ---
PT ASSESSMENT COMPLETED AND VSS. MEDS GIVEN ORDERED AND WELL TOLERATED. FALL PRECAUTIONS IN PLACE. PT REMAINS A HIGH FALL RISK AT THIS TIME. ASST WITH FREQUENT REPOSITION FOR COMFORT. SLEEPING WELL. WOUND VAC IN PLACE. WILL CONTINUE TO MONITOR FREQUENTLY.
[2019-04-09 05:31] LABS: HEMATOCRIT 20.9 % (37.0-47.0); HEMOGLOBIN 6.9 gm/dL (12.0-15.0); RBC 2.21 mil/uL (4.20-5.00)
[2019-04-09 05:33] LABS: MCH 31.2 pg (26.0-34.0); MCV 94.6 fL (80.0-100.0); RDW 15.4 % (10.5-14.5); WBC 5.1 thou/uL (4.0-11.0)
[2019-04-09 07:00] LABS: URINE BILIRUBIN NEGATIVE (Negative); URINE BLOOD 2+ (Negative); URINE CLARITY CLEAR; URINE COLOR YELLOW; URINE GLUCOSE-RANDOM* NEGATIVE (Negative); URINE KETONES NEGATIVE (Negative); URINE LEUKOCYTES-REFLEX NEGATIVE (Negative); URINE NITRITE-REFLEX NEGATIVE (Negative); URINE PROTEIN (DIPSTICK) 1+ (Negative); URINE SPECIFIC GRAVITY 1.015 (1.005-1.035); URINE UROBILINOGEN 0.2 E.U./dl (0.2-1.0)
[2019-04-09 08:00] VITALS: BP 125/57
[2019-04-09 08:44] LABS: SQUAMOUS None Seen /LPF (0-3)
[2019-04-09 08:55] LABS: BACTERIA-REFLEX 1-9 Few /HPF (None Seen); CASTS None Seen /LPF (None Seen); CRYSTALS None Seen /LPF (None Seen); URINE RBC None Seen /HPF (0-2); URINE WBC-REFLEX 0-5 Rare /HPF (0-5)
--- NOTE | 2019-04-09 13:53 | NUR ---
cm visited with pt and her sister who she lives with. per pt sister " calling me after meetings around 10 or 11 am because go to work around 1445 in afternoon, work evening/nights"/sister.
--- NOTE | 2019-04-09 14:31 | NUR ---
WOUND CARE F/U; ROUNDING WITH DR JEANNETTE PÉREZ AND MITESH ADAMS [employer] TAR AND GRAVEL ROOFER. THE WOUND LOOKS PALE AND SLOUGHY TODAY. NO ODOR. THE PATIENT HAS CONSTANT PAIN. SHE STATES NO RELIEF WITH THE SILVADINE/MORPHINE CREAM. RECOMMENDATION; FOR NOW CONTINUUE VAC THERAPY. DISCUSSED WITH JIMMY
[2019-04-09 19:30] VITALS: BP 135/60
--- NOTE | 2019-04-10 02:45 | NUR ---
PT ASSESSMENT COMPLETED AND VSS. MEDS GIVEN ORDERED AND WELL TOLERATED. FALL PRECAUTIONS IN PLACE. PT WITH 100.9 TEMP DURING SHIFT. CONTACTED THAI MASSEUR PILAR AND INFORMED HER OF THE FEVER, HGB, AND HX. PER ORDERS GAVE DOSE OF TYLENOL. WILL CONTINUE TO MONITOR FREQUENTLY. FEMALE EXTERNAL CATH IN PLACE AND WORKING WELL. SLEEPING. ASST WITH FREQUENTY REPOSITION FOR COMFORT. WOUND VAC WNL AND DSGS INTACT. WILL CONTINUE TO MONITOR FREQUENTLY.
[2019-04-10 05:46] LABS: MCH 31.4 pg (26.0-34.0); RBC 1.98 mil/uL (4.20-5.00); WBC 4.1 thou/uL (4.0-11.0)
[2019-04-10 05:48] LABS: MCHC 32.9 g/dL (28.0-37.0); MCV 95.4 fL (80.0-100.0); RDW 15.2 % (10.5-14.5)
[2019-04-10 05:59] LABS: HEMOGLOBIN 6.2 gm/dL (12.0-15.0)
[2019-04-10 06:00] LABS: HEMATOCRIT 18.9 % (37.0-47.0)
[2019-04-10 09:11] VITALS: BP 106/55
[2019-04-10 12:20] VITALS: BP 100/57; BP 131/78
[2019-04-10 18:23] LABS: HEMATOCRIT 27.8 % (37.0-47.0)
[2019-04-10 18:25] LABS: HEMOGLOBIN 9.2 gm/dL (12.0-15.0)
--- NOTE | 2019-04-10 18:58 | NUR ---
ASSUMED CARES AT 0700. PT AWAKE, ALERT AND ORIENTED*2-3. C/O LEFT LOWER EXTREMITY PAIN (AROUND THE ANKLE). BP LOW THIS AM, HOSPITALIST NOTIFIED AND ORDERS RECEIVED. PT LETHARGIC AND WEAK, CBC WORKUP CRITICALLY LOW, ORDERS RECEIVED FOR 1 UNIT BBK AND BLOOD TRANSFUSED. NO REACTION NOTED DURING OR AFTER TRANFUSION. PT WENT DOWN FOR EGD, SEE IMAGING REPORT FOR RESULTS. PT CONTINUES TO HAVE TREMORS IN BUE. PT REMAINS INCONTINENT OF BLADDER, USED THE BEDPAN FOR BOWEL. UP WITH MAX ASSIST. REPOSITIONED Q2H. Q1H VISUAL CHECKS. CALL LIGHT WITHIN REACH. FALL PRECAUTIONS IN PLACEW
[2019-04-10 19:35] VITALS: BP 133/67
[2019-04-11 00:46] LABS: HEMATOCRIT 25.1 % (37.0-47.0); HEMOGLOBIN 8.3 gm/dL (12.0-15.0)
[2019-04-11 01:00] LABS: ALBUMIN 1.2 g/dL (3.4-5.0); DIRECT BILIRUBIN < 0.1 mg/dL (<0.1-0.3); SGOT 67 U/L (15-37); SGPT 25 U/L (30-65); TOTAL BILIRUBIN 0.1 mg/dL (<0.1-1.0); TOTAL PROTEIN 6.5 g/dL (6.4-8.2)
--- NOTE | 2019-04-11 03:03 | NUR ---
ASSUMED CARE FROM DAY SHIFT FAMILY AT BEDSIDE, DISCUSSED PLAN OF CARE AND VERBALIZED UNDERSTANDING, PT TURNED EVERY 2 HOURS, FEMALE CATH PLACED FOR HS. PT RESTED WELL THROUGHOUT HOURLY ROUNDS WILL CONITNUE WITH CURRENT PLAN OF CARE.
[2019-04-11 08:51] VITALS: BP 113/57
--- NOTE | 2019-04-11 09:15 | NUR ---
WOUND CARE NOTE; VIEWED WOUND STATUS W/ DR PÉREZ, VAC OFF DUE TO LEAKAGE LAST JORDYN, NEW ORDERS TO DC VAC FOR NOW AND APPLY DAKINS, WOUND CLEANSED W/ NS, DAKINS SOAKED GAUZE APPLIED, COVERED W/ GAUZE, DAT, PT COOPERATIVE, SPECIAL POLICE OFFICER AWARE AND ASSISTED W/ MAMIE CHANGE, FAMILY AT DR ESPERANZA INFORMED OF NEW WOUND ORDERS, SEE PROCESS INTERVENTION FOR WOUND DETAILS
[2019-04-11 12:34] LABS: HEMATOCRIT 28.4 % (37.0-47.0); HEMOGLOBIN 9.4 gm/dL (12.0-15.0)
[2019-04-11 19:25] VITALS: BP 130/59
--- NOTE | 2019-04-11 20:03 | NUR ---
SALINE LOCK LEFT ANTICUBITAL PATENT USED FOR IV ABX ADMINISTRATION-DID HAVE 100.0 TEMP THIS AM-MD NOTIFIED-TYLENOL 650MG PO PRN AT 0845-TEMP RECHECK AT APPROX 1100 98.4-DOES REPORT PAIN TO LEFT ANKLE WOUND "ONLY WHEN YOU MESS WITH IT" OTHERWISE NONE-REFUSED OFFERS OF PAIN MEDS STATING "I DON'T NEED IT"WOUND NURSE AND MD ASSESSED LEFT MEDIAL ANKLE WOUND AND DRESSING CHANGED THIS AM-DRESSING CHANGE REPEATED PER ORDER AT APPROX 1630-POOR APPETITE BUT DOES TAKE SUPPLEMENTS WELL. HEEL PROTECTORS PLACED BILAT. PER ORDER-INCONTINENT CARE AND PERINEAL CARE INCLUDING BARRIER CREAM COMPLETED Q 2 WELL POSITIONING WHEN IN BED-UP IN CHAIR FOR SHORT INTERVALS AT MEALS.
--- NOTE | 2019-04-12 03:54 | NUR ---
assumed care at approx 1900 evening 04/11. pt lying in bed with head of bed elevated at change of shift. dressing to left ankle intact with prafo boots in place. pt assisted with turning and repositioning q2hrs. pt took hs meds with water tolerating well. pt appears to be sleeping soundly off and on. bed alarm on and call light in reach. will continue to monitor.
[2019-04-12 08:00] VITALS: BP 121/68
--- NOTE | 2019-04-12 18:26 | NUR ---
AAOX3 PLEASANT AND COOPERATIVE. VERY QUIET SOMEWHAT FLAT AFFECT. MANY VISITORS TODAY. ATE APPROX 50% OF MEALS. NEEDS ASSISTANCE WITH FEEDING. INCONTINENT OF 2 SMALL STOOLS TODAY. LEFT ANKLE WOUND DRESSING CHANGED WITH WET TO DRY DAKINS GAUZE WOUND EDGES WITH YELLOW ESCHAR. C/O LEFT LEG PAIN. PARTICIPATED WITH THERAPY. IV LEFT FOREARM.
[2019-04-12 19:26] VITALS: BP 103/58
--- NOTE | 2019-04-13 01:42 | NUR ---
assumed care at approx 1900 evening 04/12. pt lying in bed with head of bed elevated dozing off and on. pt awoke for hs meds taking with water tolerating well. pt given pain med for c/o pain to lower legs bilaterally. assist pt with turn q2 and adjust prafo boots. IV antibiotic infused per saline lock to left forearm. pt appears to be sleeping soundly with hourly rounding checks. bed alarm on and call light in reach. will continue to monitor.
[2019-04-13 10:18] VITALS: BP 145/74
--- NOTE | 2019-04-13 11:34 | NUR ---
ASSUMED CARE OF PT AT 0715. PT IS A&OX4. IS STABLE & ON ROOM AIR. DENIES PAIN IN THE LLE. DRSG C/D/I. PRAFO BOOTS IN PLACE. PT IS UP WITH MAX ASSIST OF 2, TRANSFER TO W/C. FALL PRECAUTIONS & HOURLY ROUNDING CONTINUED THIS SHIFT. LABS & VITALS REVIEWED. PT IS INCONT TO B&B. IS A Q2H TURN. PT IS CURRENTLY UP IN W/C. CALL LIGHT WITHIN REACH. SON AT BEDSIDE. WILL CONTINUE TO MONITOR.
[2019-04-13 19:05] VITALS: BP 114/64
--- NOTE | 2019-04-14 05:32 | NUR ---
PT ALERT AND ORIEN TIMES FOUR. C/O LEG PAIN. TURNED EVERY TWO HOURS. NO BM THIS SHIFT. TEMP DECREASED, TYLENOL GIVEN. SLOW PROGRESS, LEFT LEG WOUND LOOKING BETTER AND HEALING PER PT. DRESSING C/D/I. WILL CONTINUE TO MONITOR.
[2019-04-14 08:30] VITALS: BP 136/83
--- NOTE | 2019-04-14 19:00 | NUR ---
ASSUMED CARE OF PT AT 0715. REPORTS SLEPT GOOD LAST NIGHT. PT IS A&OX4 ABLE TO VOICE HER OWN NEEDS.VSS ON ROOM AIR. C/O LEFT ANKLE PAIN IN THE LLE. PRN HYDROCODONE GIVEN. WOUND DOCTOR AND NURSE CAME TO SEE PT. ORDERED FOR NEW DRESSING CHANGE. WOUND DRSG CHANGE ORDERED. DR. CAICEDO OK TO PUT ANGELA WRAP TO KEEP KERLIX IN PLACE. PRAFO BOOTS IN PLACE. PT IS Q TURN WHILE IN BED. UP WITH THERAPISTS. PT IS UP WITH MAX ASSIST AND PIVOT, MOVING LITTLE EASIER WITH TRANSFER TO W/C.OFFERED SUPPORTIVE CARE. ENCOURAGED PT TO VOICE HER NEEDS. ENCOURAGED PT UP TO DINNING ROOM FOR MEALS. UP FOR BREAKFAST AND LUNCH. REQUESTS TO STAY IN BED AT DINNER. DAUGHTER WAS WITH PT AND HELP WITH FEEDING. OFFERED TOILETING FREQUENTLY. PT REFUSED COLACE THIS AM. NO BM TODAY. CONTINUE TO BE ON IV ABT FOR WOUND INFECTION. WOUND DOCTOR SAID WOUND LOOKS GREAT AND CONTINUE DRESSING FROM WET TO DRY FOR COUPLE DAYS. ENCOURAGED PT TO EAT, TO DRINK AND TO MOVE AROUND TO GET BETTER. FALL PRECAUTIONS & HOURLY ROUNDING CONTINUED THIS SHIFT. GAVE REPORT TO NIGHT NURSE TO CONTINUE TO MONITOR.
[2019-04-14 19:15] VITALS: BP 132/72
--- NOTE | 2019-04-14 21:21 | HC ---
[facility] [place] [address] CONSULTATION Name: BRANDY BARGER Room #: 511-P ADM IN M.R.#: [id number] Admission: 04/07/19 Attend Phys: Saji Briscoe MD Discharge: Date of : 47 Report #: [id number] THIS REPORT FOR: //name// CC: Saji Briscoe FAM physician/PCP DATE OF SERVICE: 04/12/2019 NEUROBEHAVIORAL STATUS EXAM ATTENDING PHYSICIAN: Dr. Saji Briscoe. PATTERNMAKER HAND: Sage Rosen, PhD. CLINICAL PRESENTATION: The patient is a 74-year-old female admitted to the [facility] Rehabilitation Unit for comprehensive inpatient rehabilitation program. Her assessment on admission to the rehab unit is a medical complexity with generalized debilitation, left lower extremity cellulitis, left lower extremity venous stasis ulcer, acute renal insufficiency, rheumatoid arthritis with severe rheumatoid deformities and a history of immunosuppression, hypertension and left lower extremity venous ablation on 03/19/2019. A complete description of her medical condition and history along with medications can be found in her medical record. Neuropsychological consultation was requested to provide assistance in the assessment of cognitive and emotional status and to provide recommendations and services. Prior to this most recent admission, she was living with the assistance of her sister in her home. The patient has 2 children. She was about 20 years ago. She is a high school graduate with a 2-year Community College degree. 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 TECHNIQUES UTILIZED: Clinical interview, review of medical records, staff consultation and behavioral observation, mini mental status exam 2 standard version, NAB digits forward and digits backward test, and category fluency assessment. EXAMINATION FINDINGS: The patient was alert and cooperative with the assessment. She accurately described events surrounding her admission. There is no evidence of aphasia. Her thoughts are logical and goal oriented. There is no evidence of thought disorder. She does not report auditory or visual hallucinations. She describes symptoms to include difficulty with sleep since hospitalization, variability in word finding, increased anxiety and depression. She is worried about her recovery and the extent of help that she will require upon discharge. Her family is reported as supportive. Her performance on the MMSE 2 brief version is within normal limits with a raw [facility] [address] [place] [address] CONSULTATION Name: BRANDY BARGER Room #: 511-P [facility]#: [id number] Admission: 04/07/19 Attend Phys: Saji Briscoe MD Discharge: Date of : 47 Report #: [id number] score of 14 of 16. She is 3/3 for initial registration, 5/5 for orientation to time and 5/[address]. She was 1/3 for immediate recall of 3 items after a brief time delay and distraction. The patient was 0/5 for serial 7's, 2/2 for naming, 1/1 for repetition. Auditory comprehension was within normal limits. She could read and follow a single command. She reports upper extremity tremor and deformities of the right hand from rheumatoid arthritis and was not asked to write or copy a simple geometric design. The patient's score was 22/30, which is a T score of 30 and percentile rank of 2. Initial focused attention as assessed through digits forward was within normal limits with a T score of 48. Digits backward, measured more sustained concentration was in the mild range of impairment with a T score of 37. Category fluency was extremely low with a raw score of 9, T score of 19 and percentile rank of less than 1. The patient is presenting with deficits in cognitive functioning, most likely affecting sustained concentration and executive functioning. DIAGNOSTIC IMPRESSION: Neurocognitive disorder, unspecified, without behavior disorder -- extent to be determined, likely in the mild to moderate range. Unspecified anxiety disorder. RECOMMENDATIONS: The patient will likely require increased assistance in the management of medication, nutrition and finances upon her discharge home. A followup neuropsych assessment may be of benefit to clarify the severity of cognitive functioning. She may benefit from the use of an antidepressant to assist in the management of anxiety. Additionally, reduce as medically appropriate medication with sedating features, e.g., hydrocodone/morphine, which can have an influence on concentration and higher level thought organization. These compensatory strategies can also be of benefit to assist with issues affecting concentration and higher level thought organization. Thank you very much for allowing me to provide the consultation on this patient. <ELECTRONICALLY SIGNED> By: Sage Rosen, PhD 04/14/[id number] Sage Rosen, PhD /nt
--- NOTE | 2019-04-14 22:51 | NUR ---
PT ASSESSMENT COMPLETED AND VSS. MEDS GIVEN ORDERED AND WELL TOLERATED. FALL PRECAUTIONS IN PLACE. ASST WITH FREQUENT REPOSITION FOR COMFORT. FEMALE EXTERNAL CATH IN PLACE AND WORKING WELL. DSG ON LEFT ANKLE DRY AND INTACT. SLEEPING WELL. WILL CONTINUE TO MONITOR FREQUENTLY.
[2019-04-15 07:23] LABS: CALCIUM 7.9 mg/dL (8.5-10.1); MAGNESIUM 1.2 mg/dL (1.8-2.4); POTASSIUM 4.2 mmol/L (3.5-5.1)
[2019-04-15 07:47] VITALS: BP 129/64
[2019-04-15 08:01] LABS: HEMATOCRIT 23.4 % (37.0-47.0); HEMOGLOBIN 7.7 gm/dL (12.0-15.0); MCH 30.8 pg (26.0-34.0); MCV 93.2 fL (80.0-100.0); RBC 2.51 mil/uL (4.20-5.00); RDW 15.6 % (10.5-14.5)
[2019-04-15 09:24] LABS: ABSOLUTE NEUTROPHILS 1.9 thou/uL (1.4-8.2); HYPOCHROMASIA 1+; LARGE PLATELETS FEW; PLATELET COUNT 66 thou/uL (150-400); PLATELET ESTIMATE DECREASED
--- NOTE | 2019-04-15 13:33 | NUR ---
TEAM MTG: RETEAM, WILL ASSESS DC OPTIONS, PLAN DC 04/24/19.
[2019-04-15 20:04] VITALS: BP 122/76
[2019-04-15 20:32] VITALS: BP 131/79
--- NOTE | 2019-04-15 20:33 | NUR ---
ASSUMED CARE OF PT AT 0715. LABS REVIEWED. MAG 1.2, HGB 7.7. NOTIFIED ELADIO AND OBTAINED ORDER FOR MAG SULFATE IV. IV ON LEFT WRIST INFILTRATED. IV TEAM CALLED RESTART IV ON RIGHT UPPER ARM. MAG SULFATE 2X GIVEN AND CONTINUE TO BE ON IV ABT FOR LLE ULCER. NEW ORDER FOR SCHEDULE TYLENOL AND PRN MELATONIN FOR SLEEP. WILL GIVE REPOR TO NIGHT NURSE TO CONTINUE TO MONITOR. SHIFT NOTE: ALERT AND ORIENTED X4 VOICE HER OWN NEEDS.VSS ON ROOM AIR. C/O LEFT ANKLE PAIN IN THE LLE. PRN HYDROCODONE GIVEN. NO DRESSING CHANGE THIS SHIFT. BECAUSE NIGHT NURSE CHANGE DRESSING THIS AM, AND PT WANTS TO CHANGE TO NIGHT. DRESSING C/D/I. PRAFO BOOTS IN PLACE AT THIS MOMENT. PT IS Q TURN WHILE IN BED. UP WITH THERAPISTS. PT IS UP WITH MAX ASSIST AND PIVOT, MOVING LITTLE EASIER WITH TRANSFER TO W/C. ENCOURAGED PT TO GET UP TO DINNING ROOM FOR MEALS. SHE WAS UP FOR 3 MEALS TODAY. HAS NO BM TODAY. OFFERED TOILETING FREQUENTLY, BUT INCONTINENT 2X. OFFERED SUPPORTIVE CARE. ENCOURAGED PT TO VOICE HER NEEDS. FALL PRECAUTIONS & HOURLY ROUNDING CONTINUED THIS SHIFT. GAVE REPORT TO NIGHT NURSE TO CONTINUE TO MONITOR.
--- NOTE | 2019-04-15 23:04 | NUR ---
PT ASSESSMENT COMPLETED AND VSS. MEDS GIVEN ORDERED AND WELL TOLERATED. FALL PRECAUTIONS IN PLACE. ASST WITH REQUENT REPOSITION USING PILLOWS FOR COMFORT. FEMALE CATH IN PLACE WITH MODERATE AMOUNT OP YELLOW URINE. PRN PAIN MEDICATION HELPFUL. SLEEPING WELL AT THIS TIME. WILL CONTINUE TO MONITOR FREQUENTLY.
[2019-04-16 07:30] VITALS: BP 128/76
--- NOTE | 2019-04-16 10:27 | NUR ---
cm and nurse second shift supervisor left message for daughter wandra rt dcp. cm left snf list and hh list at bedside. pt working with therapy and does voice some concerns about might not be able to do self cares while sister out of home for work. will cont following as needed for dc needs.
--- NOTE | 2019-04-16 18:17 | NUR ---
ASSUMED CARE OF PT AT 0715. PT IS A&OX4 WITH SOME PERIODS OF FORGETFULNESS. PT REPORTED PAIN THIS AFTERNOON, WHICH WAS MANAGED WITH PO MEDICATIONS. TURNED Q2H AND BARRIER CREAM APPLIED TO COCCYX. IV IN R UPPER ARM PATENT, DRESSING C/D/I, AND WITHOUT REDNESS, WARMTH, EDEMA, OR DRAINAGE. WOUND VAC PLACED BY WOUND NURSE THIS SHIFT TO [facility] PARTICIPATED IN THERAPIES. FALL PRECAUTIONS IN PLACE AND NURSING WILL CONTINUE TO MONDITOR.
[2019-04-16 19:15] VITALS: BP 132/83
--- NOTE | 2019-04-17 01:19 | NUR ---
ASSESSMENT: PT REMAIN ALERT AND ORIENT TIMES FOUR. C/O LEFT ANKLE PAIN, PRN PAIN MEDICATION GIVEN WITH PARTIAL RELIEF. PT TURNED EVERY TWO HOURS. WOUND VAC INTACT, DRAINING DARK BROWNISH OUT PUT. VSS, AFEBRILE. NO BM THUS FAR THIS SHIFT. SLOW PROGRESS TOWARDS DC GOALS, WILL CONTINUE TO MONITOR,
--- NOTE | 2019-04-17 09:48 | NUR ---
pt sister reinaldo here for visit, spoke with her " yes got the hh list and skilled list. thank you i will look at advanced and the forum and let you know what we think. i spoke with the other madhu yesterday"/sister aurora. will cont following as needed for dc needs.
[2019-04-17 10:51] VITALS: BP 154/92
--- NOTE | 2019-04-17 14:05 | NUR ---
ASSUMED CARE OF PT AT 0715. PT IS A&OX4 AND VITAL SIGNS ARE STABLE. PT REPORTS PAIN, WHICH WAS MANAGED WITH PO MEDICATIONS. PT ALSO REPORTS NAUSEA AND EMESIS, MANAGED WITH PO MEDICAITONS AND CLEAR LIQUIDS. PT PARTICIPATING IN SOME THERAPIES, BUT REPORTS WEAKNESS AND MAY NOT PARTICPATE IN ALL THERAPIES THIS SHIFT. WOUND VAC INTACT AND FUNCTIONING APPROPRIATELY. IV IN RIGHT UPPER ARM DRESSING C/D/I, PATENT, AND SITE W/O REDNESS, DRAINAGE, EDEMA, OR WARMTH. FALL PRECAUTIONS IN PLACE AND NURSING WILL CONTINUE TO MONITOR.
[2019-04-17 20:25] VITALS: BP 102/55
--- NOTE | 2019-04-17 22:00 | NUR ---
WOUND VAC TO LATERAL LEG. IV ANTIBIOTICS TO JOSELIN PERIPHERAL SITE. TURNED TO SIDE AND PAD CHANGED. APPRECIATES EUCERIN TO ABDOMEN AND BACK
[2019-04-18 04:18] LABS: HEMATOCRIT 23.3 % (37.0-47.0); HEMOGLOBIN 7.6 gm/dL (12.0-15.0); MCH 30.5 pg (26.0-34.0); MCHC 32.5 g/dL (28.0-37.0); MCV 94.1 fL (80.0-100.0); PLATELET COUNT 57 thou/uL (150-400); RBC 2.48 mil/uL (4.20-5.00); RDW 15.7 % (10.5-14.5); WBC 2.5 thou/uL (4.0-11.0)
[2019-04-18 04:30] LABS: CALCIUM 7.7 mg/dL (8.5-10.1); CREATININE 1.1 mg/dL (0.6-1.0); MAGNESIUM 1.8 mg/dL (1.8-2.4); POTASSIUM 4.6 mmol/L (3.5-5.1)
--- NOTE | 2019-04-18 06:02 | NUR ---
ASSESSMENT: RESUMED CARE OF PT AT 2300. PT SLEEPING, DENIES PAIN. CALL BUTTON WITHIN REACH. TURNED EVERY TWO HOURS. JOSELIN IV SL. WOUND VAC INTACT. SLOW PROGRESS, WILL CONTINUE TO MONITOR,
[2019-04-18 07:06] VITALS: BP 130/78
[2019-04-18 08:20] LABS: ABSOLUTE NEUTROPHILS 1.6 thou/uL (1.4-8.2); NUCLEATED RBCS 1 /100WBC
--- NOTE | 2019-04-18 13:05 | NUR ---
WOUND CARE F/U; THE LEFT MEDIAL LEG WOUND CONTINUES TO IMPROVE. THE QUALITY OF THE WOUND BED SHOWS MARKED IMPROVEMENT WITH GRANULATION CLEARLY VISABLE. RECOMMENDATION; DR PÉREZ WILL CONTINUE THE WOUND VAC PREVIOUS. DISCUSSED WITH JIMMY
[2019-04-18 20:24] VITALS: BP 138/81
--- NOTE | 2019-04-18 21:24 | NUR ---
ASSUMED CARE OF PT AT 0715. PT IS A&OX4 AND VITAL SIGNS ARE STABLE. PT FATIGUES FREQUENTLY AND REQUIRES FREQUENT REST PERIODS. DR. GARNER CONSULTED ABOUT DECREASED WBC AND PLATELET COUNTS, NO NEW ORDERS. NURSING ENCOURAGING PT TO FREQUENTLY WASH HANDS AND WATCH PT FOR S/S OF INFECTION OR BLEEDING. IV IN RIGHT UPPER ARM PATENT, DRESSING C/D/I, SITE W/O EDEMA, REDNESS, WARMTH, OR DRAINAGE. FAMILY VISITS DURING SHIFT. PAIN MANAGED WITH PO MEDICAITONS AND PT PARTICIPATED IN SCHEDULED THERAPIES. ENCOURAGE DIETARY INTAKE. FALL PRECAUTIONS IN PLACE AND NURSING WILL CONTINUE TO MONITOR.
--- NOTE | 2019-04-19 04:06 | NUR ---
assumed care at approx 1900 evening 04/18. pt lying in bed with head of bed elevated resting. wound vac in place intact and functioning with no problems. pt assisted with turning and repositioning q2hrs. pt took hs meds with water tolerating well. pt appears to be sleeping soundly with hourly rounding. bed alarm on and call light in reach. will continue to monitor.
[2019-04-19 07:26] VITALS: BP 131/74; BP 138/78
--- NOTE | 2019-04-19 11:25 | NUR ---
ASSUMED CARE OF PT AT 0715. REPORTS SLEPT FAIR LAST NIGHT. USING FEMALE EXTERNAL LAST NIGHT HAD 550CC ABMER URINE IN SUCTIONING THIS AM. ASSIST TO BSC DURING DAY AND OFFER TOILETING FREQUENTLY. PT IS A&OX4 AND VITAL SIGNS ARE STABLE. HAD 2XBM LAST NIGHT AND HAD ONE LARGE SOFT BM WITH OT. HELD MIRALAX THIS AM PER PT REQUESTS. UP TO RECLINER AFTER OT. CONTINUE TO BE ON CIPRO FOR LLE INFECTION. WOUND VAC DRESSING INTACT AND PATENT. NURSING ENCOURAGING PT TO FREQUENTLY WASH HANDS AND WATCH PT FOR S/S OF INFECTION OR BLEEDING. IV IN RIGHT UPPER ARM PATENT, DRESSING C/D/I, SITE W/O EDEMA, REDNESS, WARMTH, OR DRAINAGE. FAMILY AT BEDSIDE. PAIN MANAGED WITH PO MEDICAITONS AND PT PARTICIPATED IN SCHEDULED THERAPIES. ENCOURAGE DIETARY INTAKE. FALL PRECAUTIONS IN PLACE AND NURSING WILL CONTINUE TO MONITOR.
[2019-04-19 19:15] VITALS: BP 120/68
--- NOTE | 2019-04-20 02:06 | NUR ---
assumed care at approx 1900 evening 04/19. pt lying in bed at change of shift sleeping. pt awoke for hs meds tolerating well. wound vac in place intact to left lower leg. pt assisted with turning and repositioning q2hrs. pt appears to be sleeping soundly with hourly rounding checks. bed alarm on and call light in reach. will continue to monitor.
[2019-04-20 07:45] VITALS: BP 141/86
--- NOTE | 2019-04-20 10:08 | NUR ---
VASCULAR ACCESS TEAM SPOKE WITH RAN MARQUEZ TO CALL AND GET ORDER TO DC PICC LINE, PT NOT GETTING ANY IV MEDS
[2019-04-20 19:27] VITALS: BP 130/72
--- NOTE | 2019-04-21 01:35 | NUR ---
PATIENT ASSESSED AND IS ALERT X 3-4. SKIN WARM AND DRY. RESP EVEN AND UNLABORED. HAS A WOUND VAC TO LEFT ANKLE THAT HAS DARK BROWNISH DRAINAGE RETURN, HAD CELLULITIS TO THAT AREA. LUNGS CTA. ON ROOM AIR. RIGHT UPPER ARM SL NOTED. VS STABLE. PAIN TO THE LEFDT ANKLE IS A RATING OF 6. REQUESTING TYLENOL. IS INCONT OF BOWEL AND BLADDER IN BED. DOES NOT ASK TO GET UP OUT OF BED TO GO TO THE [facility]. UP WITH 2 PERSON ASSIST MAX ASSIST. POSSISBLE GOING TO REHAB LTC UNIT. TAKES MEDCXIATION WHOLE WITH H20. TAMMY WELL. TURNS WITH ASSISTANCE AND THEN DOES TURN SOME ON HER OWN. REMAINS ON BEDREST TONIGHT. NO EDEMA NOTED TO LOWER EXTREMITIES. CONT PLAN OF CARE.
[2019-04-21 07:30] VITALS: BP 134/84
[2019-04-21 07:45] VITALS: BP 155/69
--- NOTE | 2019-04-21 08:00 | NUR ---
cm notified that pt and pt sister 1st choice if needed for skilled would be [facility]. cm team to send referral.
--- NOTE | 2019-04-21 10:10 | NUR ---
DISCHARGE PLANNING. PATIENT DISCHARGING TO HOME 04/24 WITH [facility] PER UNIT CM. REFERRAL FAXED TO [facility] FOR PATIENTS HH NEEDS. CALL PLACED TO [facility] TO NOTIFY OF REFERRAL AND DISCHARGE DATE. AWAITING RESPONSE. FOLLOWING.
--- NOTE | 2019-04-21 10:39 | NUR ---
ASSUMED CARE OF PT AT 0715. REPORTS DIDN'T SLEPT WELL LAST NIGHT. C/O LOOSE STOOLS STILL EVEN NO LAXATIVES GIVEN. PT CONTINUE TO BE ON CIPRO ABT FOR L ANKLE INFECTION. NOTIFIED ELADIO, OBTAINED ORDER FOR PROBIOTIC SUPPLEMENT AND PRN MELATONIN. DIDN'T HAD FEMALE EXTERNAL LAST NIGHT SINCE NIGHT RN DIDN'T KNOW SHE NEEDS ONE. ASSIST TO BSC DURING DAY AND OFFER TOILETING FREQUENTLY. PT IS A&OX4 AND VITAL SIGNS ARE STABLE. HAD 1X BM THIS AM. WOUND VAC DRESSING INTACT AND PATENT. NURSING ENCOURAGING PT TO FREQUENTLY WASH HANDS AND WATCH PT FOR S/S OF INFECTION OR BLEEDING. IV IN RIGHT UPPER ARM PATENT, DRESSING C/D/I, SITE W/O EDEMA, REDNESS, WARMTH, OR DRAINAGE. PT UP WITH PHYSICAL THERAPISTS AND WALKED COUPLE STEPS THIS AM WITH BAR RAIL. C/O PAIN ON L ANKLE MANAGED WITH EXTRA STRENGTH TYLENOL AND HER GOAL IS TO PARTICIPATE IN SCHEDULED THERAPIES. ENCOURAGE DIETARY INTAKE. FALL PRECAUTIONS IN PLACE AND NURSING WILL CONTINUE TO MONITOR.
--- NOTE | 2019-04-21 15:36 | NUR ---
WOUND CARE FOLLOW UP; ROUNDING WITH DR PÉREZ AND MITESH MARQUEZ. THE WOUND BED QUALITY CONTINUES TO IMPROVE. GRANSULATION BUDS PRESENT. NO ODOR OR ANY OTHER S/S OF INFECTION. RECOMMEDATIONS; CONTINUE POC DISCUSSED WITH RN
[2019-04-21 19:16] VITALS: BP 118/63
--- NOTE | 2019-04-22 00:38 | NUR ---
PT ASSESSMENT COMPLETED AND VSS. MEDS GIVEN ORDERED AND WELL TOLERATED. FALL PRECAUTIONS IN PLACE. SCHEDULED TYLENOL HELPFUL FOR PAIN. EXTERNAL FEMALE CATH IN PLACE AND WORKING WELL AT THIS TIME. PT SLEEPING WELL. ASST WITH REPOSITION FOR COMFORT. WILL CONTINUE TO MONITOR FREQUENTLY.
[2019-04-22 07:10] VITALS: BP 123/79
--- NOTE | 2019-04-22 09:06 | NUR ---
DOCUMENTATION FOR PT DAILY CARE TOOL DOCUMENTED AT 0902 IS A RECREATED DOCUMENT FROM PT AND OT DAILY CARE TOOLS. PURPOSE OF RECREATING DOCUMENT IS TO UPDATE LEVELS OF ASSIST FOR THE TEAM CONFERENCE REPORT.
--- NOTE | 2019-04-22 10:39 | H ---
[facility] [place] [address] HISTORY AND PHYSICAL Name: BRANDY BARGER Room #: 501-A ADM IN ..#: [id number] Admission: 04/07/19 Attend Phys: Saji Briscoe MD Discharge: Date of : 47 Report #: [id number] THIS REPORT FOR: //name// CC: Saji Briscoe [facility] physician/PCP DATE OF SERVICE: 04/07/2019 HISTORY AND PHYSICAL AND POST-ADMISSION PHYSICIAN EVALUATION HISTORY OF PRESENT ILLNESS: The patient has now been admitted for acute in-hospital inpatient rehabilitation. Please see the full admission history and physical. I agree with the history and with the physical examination findings along with the assessment and plan. The patient has a venous ulcer, left lower ankle. She underwent prior venous ablation injection to the left leg on 03/19/2019. With the venous ulcer of the left lower leg she ended up undergoing an I and D on 04/03/2019. She has venous stasis dermatitis, cellulitis of the left lower leg. She also has severe protein-calorie malnutrition. She has premorbid baseline severe rheumatoid arthritis. She has been immunosuppressed secondary to her rheumatoid arthritis medications, complicating the cellulitis noted of that left lower extremity. She is noted to have a significant decline from her premorbid functional status and has now been admitted for acute in-hospital inpatient rehabilitation. Again, please see the full history and physical and include that is the prior medical history, allergies, social history, habits. MEDICATIONS: Please see the full medication listing. REVIEW OF SYSTEMS: No current complaints of chest pain, shortness of breath or abdominal discomfort. The patient was seen earlier. PHYSICAL EXAMINATION: GENERAL: Agree with the full examination findings as noted. VITAL SIGNS: Temperature is 99.3, pulse 110, respirations 20, blood pressure 109/65. NEUROLOGIC: She is soft spoken. Limited verbalizations follows basic 1 step commands. She did wear the external catheter overnight. The patient was seen earlier. CHEST: Decreased breath sounds. CARDIOVASCULAR: Sounded regular rate and rhythm. ABDOMEN: Bowel sounds positive, nontender. EXTREMITIES: She has severe rheumatoid deformities of her hands with severe ulnar deviation and decreased manager of application development and coordination. Upper extremities revealed decreased range of motion at end range and strength probably a grade 3+/5. Lower extremities: She has a wound VAC in place left ankle. No focal calf swelling. Strength of the lower extremities, probably a grade 3 to 3+/5. She [address] [address] HISTORY AND PHYSICAL Name: BRANDY BARGER Room #: 501-A [facility] IN [facility]#: [id number] Admission: 04/07/19 Attend Phys: Saji Briscoe MD Discharge: Date of : 46 Report #: [id number] has had a definite lower level, although prior to rehabilitation transfer. She has been on max assist with basic transfers. She has been nonambulatory. Squat pivot transfers have been max assist. She has some decreased sitting balance. ASSESSMENT: A 74-year-old -[place] female with the following problem list: 1. Medical complexity with generalized debilitation. 2. Left lower extremity cellulitis. 3. Left lower extremity venous stasis ulcer, status post incision and drainage on 04/03/[address] Naik. 4. Acute renal insufficiency. 5. Rheumatoid arthritis with severe rheumatoid deformities and history of immunosuppression. 6. Hypertension. 7. Left lower extremity venous ablation on 03/19/2019. PLAN: Again, please see the full history and physical. The patient has been admitted for an acute in-hospital inpatient rehabilitation stay. From a postadmission physician evaluation perspective, there are no relevant changes since the preadmission screening. Please see the review of the prior and current medical and functional conditions and comorbidities. Please see the patient's previous and current functional status. As far as risk of complications, the patient has multiple medical comorbidities as noted above. Initial plan of care involves the interdisciplinary acute inpatient rehabilitation program with the goal of maximizing her functional independence, so she can hopefully return back to her prior living situation. She does live with her sister. Her prognosis is reasonably good with estimated length of stay probably at least 2-3 weeks. Goal would be for her to initially become as independent as possible at the wheelchair level. We will need to see how much assistance the sister can provide and see how much progress the patient conveyed. As far as potential barriers the patient has multiple medical comorbidities and decreased functional status. The patient meets diagnostic criteria for an acute in-hospital inpatient rehabilitation stay. She meets the medical necessity criteria. We will have the medical record consultant physicians involved. She does have the tolerance for therapies and has appropriate discharge goals back to the home setting. <ELECTRONICALLY SIGNED> By: Saji Briscoe MD 04/22/19 1039 1017 1117 Saji Briscoe MD /[facility]
--- NOTE | 2019-04-22 10:39 | PLAN ---
[facility] [place] [address] REHAB UNIT PLAN OF CARE Name: BRANDY BARGER Room #: 501-A ADM IN [facility]#: [id number] Admission: 04/07/19 Attend Phys: Saji Briscoe MD Discharge: Date of : 46 Report #: [id number] THIS REPORT FOR: //name// CC: Saji Briscoe [facility] physician/PCP DATE OF SERVICE: 04/09/2019 PROGRESS NOTE AND OVERALL PLAN OF CARE SUBJECTIVE: The patient is seen back today in followup. She is in no distress. Last recorded temperature is 98.9, pulse 102, respirations 18, blood pressure 145/72. She is alert. She will follow basic 1 step commands. She appears to have a reasonable appetite. She has severe rheumatoid arthritic hands, but is able to tightener and feed herself. Functionally, she transfers with max assist, bed to wheelchair. Sit to supine is max assist. Lower body dressing is dependent. Upper body is mod assist. ASSESSMENT: 1. Left lower extremity cellulitis. 2. Left lower extremity venous stasis ulcer, status post incision and drainage. She continues with the wound VAC in place. 3. Medical complex with generalized debilitation. 4. Acute renal insufficiency. 5. Rheumatoid arthritis with history of immunosuppressive therapy. 6. Hypertension. 7. Left lower extremity, status post venous ablation, 03/19/2019. 8. Severe protein-calorie malnutrition. PLAN: The overall plan of care is based on the preadmission screen, post-admission physician evaluation and information garnered from therapy assessments. 1. Estimated length of stay is probably at least 2 to 3 weeks depending upon her progress. She is at a lower functional level. 2. Anticipated interventions includes the interdisciplinary acute inpatient rehabilitation program. 3. Anticipated functional outcome would be for the patient to improve as far as basic transfers and to achieve her prior level of ADLs, so that her family can again care for her within the home setting. 4. Discharge destination would be back home with her sister. 5. Expected therapy by discipline would include PT and OT 1-1/2 hours per day [address] [address] REHAB UNIT PLAN OF CARE Name: CHARBELBRANDY J Room #: 501-A [facility] IN [facility]#: [id number] Admission: 04/07/19 Attend Phys: Saji Briscoe MD Discharge: Date of : 46 Report #: [id number] each five days a week throughout the duration of the acute inpatient rehabilitation stay. <ELECTRONICALLY SIGNED> By: Saji Briscoe MD 04/22/19 1039 [id number] 1416 Saji Briscoe MD /nt
--- NOTE | 2019-04-22 10:45 | NUR ---
ASSUME PT CARE AT 0700. PT REPORTS SLEPT BETTER WITH MELATONIN LAST NIGHT. OT CAME AND GAVE PT BATH. PT UP TO DINNING ROOM FOR BREAKFAST. HAD GOOD APPETITE THIS AM. ABLE TO FEED HERSELF THIS AM. HAS STUDENT NURSE GAVE MORNING MEDS WITH HER INSTRUCTOR. WOUND VAC DRESSING INTACT AND PATENT. OFFERED SUPPORTIVE. ENCOURAGED PT TO VOICE HER NEEDS. REASSESSMENT PER CHART. HAS CHRONIC PAIN ON L ANKLE RATES PAIN 5/10. TYLENOL SCHEDULE GIVEN. FALL PRECAUTION IN PLACE. PT IS WORKING WITH PHYSICAL THERAPIST AT [facility] AT THIS MOMENT. WILL CONTINUE TO MONITOR.
--- NOTE | 2019-04-22 12:16 | NUR ---
team meeting, recommendation: still has wound vac. [facility]st [facility] at [facility].
[2019-04-22 14:13] LABS: ABSOLUTE RETIC COUNT 0.0216 10^6/uL; HEMOGLOBIN 9.6 gm/dL (12.0-15.0); MCH 30.8 pg (26.0-34.0); MCHC 32.1 g/dL (28.0-37.0); MCV 96.1 fL (80.0-100.0); OBSERVED RETIC COUNT 0.69 % (0.6-2.6); PLATELET COUNT 76 thou/uL (150-400); RBC 3.12 mil/uL (4.20-5.00); RDW 15.9 % (10.5-14.5); WBC 3.9 thou/uL (4.0-11.0)
[2019-04-22 14:28] LABS: ALBUMIN 1.7 g/dL (3.4-5.0); CALCIUM 8.1 mg/dL (8.5-10.1); CREATININE 1.2 mg/dL (0.6-1.0); POTASSIUM 4.3 mmol/L (3.5-5.1); TOTAL BILIRUBIN 0.1 mg/dL (<0.1-1.0); TOTAL PROTEIN 8.2 g/dL (6.4-8.2)
[2019-04-22 14:59] LABS: ABSOLUTE NEUTROPHILS 2.4 thou/uL (1.4-8.2); METAMYELOCYTES 1 %
[2019-04-22 15:01] LABS: ANISOCYTOSIS 1+; TEARDROPS OCCASIONAL
--- NOTE | 2019-04-22 15:34 | NUR ---
DISCHARGE PLANNING. ANTICIPATED DISCHARGE PLANNED FOR SUNDAY, 04/24. POST ACUTE RECOMMENDED AT DISCHARGE. PATIENT REFERRAL FAXED TO [facility]. PER [facility] WILL NOT HAVE A BED AVAILABLE UNITL SUNDAY, 04/25. FOLLOWING.
[2019-04-22 19:05] VITALS: BP 145/76
--- NOTE | 2019-04-22 22:15 | NUR ---
PT ASSESSMENT COMPLETED AND VSS. MEDS GIVEN ORDERED AND WELL TOLERATED. FALL PRECAUTIONS IN PLACE. PT DID NOT WANT TO CHANGE INTO A GOWN TONIGHT. PT STATES PAIN LEVEL IS A 6. SCHEDULED TYLENOL GIVEN AND HELPFUL. ASST WITH REPOSITION FOR COMFORT. WOUND VAC INTACT AND WORKING WELL. ELEVATED LEGS ON PILLOWS. WILL CONTINUE TO MONITOR FREQUETLY.
--- NOTE | 2019-04-23 04:45 | P ---
[facility] [place] [address] PROCEDURE REPORT Name: BRANDY BARGER Room #: 501-A ADM IN [facility]#: [id number] Admission: 04/07/19 Attend Phys: Saji Briscoe MD Discharge: Date of : 46 Report #: [id number] THIS REPORT FOR: //name// CC: aSji Briscoe MD [facility] physician/PCP DATE OF SERVICE: 04/10/2019 PROCEDURE: Diagnostic esophagogastroduodenoscopy. INDICATION FOR PROCEDURE: She is here for evaluation of anemia and melena. Her hemoglobin 2 months ago was about 8 grams and now she is down to 6.2 grams. She denies any hematemesis or hematochezia. She has had dark stools intermittently over the last couple of months. She has been taking iron orally. She has noted that she has had diarrhea after all meals since she has been in the hospital. She has had a significant amount of weight loss due to lack of access to food based on her current medical condition and inability to get up and cooked meals for herself. Informed consent for this procedure was obtained prior to the administration of any medication. The risks of the procedure, which include bleeding, perforation, infection, complications of sedation and the possibility I could miss something have been explained to the patient and she has indicated her consent by signing. Anesthesia kindly provided deep sedation for this procedure. DESCRIPTION OF PROCEDURE: With the patient in the left lateral decubitus position and a sleep sedated with propofol by the anesthesia service, the Olympus upper videoscope was introduced through the upper esophageal sphincter and advanced under direct visualization to the third portion of the duodenum. Findings are noted on withdrawal of the scope. The duodenal mucosa appears normal throughout its entirety. There is bile seen in the second portion of the small intestine. Pylorus, normal mucosa. Antrum, in the antrum of the stomach, there is mild hemorrhagic gastritis, nonbleeding at the present time. The body of the stomach is coated with a bui thick material of uncertain etiology. I was able to wash it off and look at the mucosa underneath of it and it appears that the mucosa under this is normal. Cardia and fundus, normal mucosa. I saw no evidence of source of GI blood loss in the stomach at this time. Retroflex view did not reveal any hiatal hernia. The scope was withdrawn into the esophagus. The esophageal mucosa appears normal throughout its entirety as well. The scope was withdrawn. The patient went to the recovery area in stable condition. She tolerated the procedure well. IMPRESSION: [facility] [address] [place] [address] PROCEDURE REPORT Name: BRANDY BARGER Room #: 501-A [facility]#: [id number] Admission: 04/07/19 Attend Phys: Saji Briscoe MD Discharge: Date of : 46 Report #: [id number] 1. Normal esophagus and duodenum. 2. Mild hemorrhagic gastritis of the antrum of the stomach, nonbleeding. The source of bleeding is not clear from this exam. RECOMMENDATIONS: For her to be on proton pump inhibitors, specifically Protonix 40 mg IV push b.i.d. She should avoid nonsteroidal anti-inflammatory medications if at all possible. We will start her on a soft diet. We will check a stool for H. pylori antigen. Thank you very much once again for allowing me to participate in her care, Dr. Briscoe. <ELECTRONICALLY SIGNED> By: Cher Villavicencio DO 04/23/19 0445 1420 0320 Cher Villavicencio DO /nt
--- NOTE | 2019-04-23 07:29 | HC ---
[facility] [place] [address] CONSULTATION Name: BRANDY BARGER Room #: 501-A ADM IN ..#: [id number] Admission: 04/07/19 Attend Phys: Saji Briscoe MD Discharge: Date of : 46 Report #: [id number] THIS REPORT FOR: //name// CC: Matt Glasgow [facility] physician/PCP Christine Luis MD with [facility] [place] office addendum: obtained records from [facility], pt seen by Samuel Luis several years ago =for cytopenia and had bone marrow which was normal w normal cytogenetics. 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 counts now improved since 1 week ago. continue observation at this time. DATE OF SERVICE: 04/22/2019 REASON FOR CONSULTATION: Low blood counts. HISTORY OF PRESENT ILLNESS: The patient is a 74-year-old female with a history of rheumatoid arthritis for large number of years who was admitted for wound care after having a vein procedure and subsequent development of an ulceration, it is my understanding. She also had been admitted here with anemia, pancytopenia, noted to have melanotic stools, was thought probably related to iron. She had an EGD with Dr. Cher Villavicencio on about 04/10/2019 that showed some mild hemorrhagic gastritis that was nonbleeding. Also about that same time, her folate was low. She is now on replacement folate. She, here at [place], has a long-term history of anemia with a hemoglobin usually between 6.9 and 9, recently 7.6. White count usually between about 3.5 and 5 and here recently 2.5. Also, platelet count of 57; in the last admission, it has usually ranged between 54 and 90 though there are few in the 120-150 range. MCV of 94.1 during this time. The patient also reports that she has seen Dr. Samuel Luis if I understand correctly about 2 years ago at , who did a bone marrow biopsy and told her nothing else was wrong and then Dr. Glasgow, her service station attendant had wanted her to see him again recently because of worsening blood counts. The patient cannot tell me which blood counts or all of them were the reason for this consult. We asked them to get records and those are still pending. [address] [address] CONSULTATION Name: BRANDY BARGER Room #: 501-A ADM IN [facility]#: [id number] Admission: 04/07/19 Attend Phys: Saji Briscoe MD Discharge: Date of : 46 Report #: [id number] PAST MEDICAL HISTORY: The patient has a history of the rheumatoid arthritis for large number of years. She reports ____ she has been on prednisone and Humira. Also history of hypertension, chronic kidney disease; history of the hemorrhagic gastritis, nonbleeding. Also, I believe she had varicose veins and also had peripheral edema. FAMILY HISTORY: Nothing specific. She has two children. Her son has diabetes. SOCIAL HISTORY: She was a mental health aide here in town. She has been in town for about the last 60 years. Previous to this, she was in [place]. Nonsmoker, no alcohol, no street drugs. REVIEW OF SYSTEMS: The patient at this time does have some fatigue. Does have some rheumatoid arthritis pain. No swallowing troubles. Does have occasional bowel issues, but nothing significant. No blood in her urine or stool. Does have some weakness. No new skin rash though she does have the sore on her legs that is being worked on with wound care. MEDICATIONS: Currently include melatonin 10 at bedtime, MiraLax daily, docusate b.i.d. p.r.n., ciprofloxacin 750 b.i.d., mineral oil to skin, Tylenol p.r.n., propranolol 10 b.i.d., pantoprazole 40 b.i.d., prednisone 5 every 48 hours, folic acid 1 mg daily, Zofran p.r.n., zinc 220 t.i.d., metoprolol 50 b.i.d., primidone 100 mg b.i.d., hydrocodone 1 tab q.4 p.r.n. LABORATORY DATA: As mentioned labs here is notable for electrolytes, mostly normal. Creatinine has been recently 1.1 though it had been on 1.8 range earlier this admission. Earlier this admit, AST 67, will be repeated today. Alkaline phosphatase have been elevated at 245 in the past, ALT had been low at 25 in the past, these are being repeated. Albumin was 1.2 in the past, it has been checked today. Iron on 04/08/2019 was 20, with a TIBC of 84, percent saturation of 24. C-reactive protein on 03/29/2019 113. White count recently 2.5, being repeated. Hemoglobin is 7.6, MCV 94.1, RDW 15.7, platelets 57. Note that CBC and CMP being repeated today. Differential nonacute. Note that large platelets were seen. TSH not repeated for some time. Folate was 4.8 on admission, now on replacement. Vitamin B12 515 on 04/01/2019. Erythropoietin ordered and pending. UA had 2+ blood, 0-5 rbcs. IMAGING: Nothing significant at this time and note that 2 years ago, she had a CT abdomen without mention of hepatosplenomegaly or lymphadenopathy. PHYSICAL EXAMINATION: GENERAL: There is no height and weight recently reported. VITAL SIGNS: Blood pressure 123/79, respirations 14, pulse 99, temperature 98.2. MOOD: The patient is alert and conversant. NEUROLOGIC: The patient's speech and thought pattern appear to be normal. She [address] [address] CONSULTATION Name: BRANDY BARGER Room #: 501-A ADM IN ..#: [id number] Admission: 04/07/19 Attend Phys: Saji Briscoe MD Discharge: Date of : 46 Report #: [id number] is slowly moving extremities. HEENT: Oropharynx appears to be mostly clear from general exam. LYMPHATICS: No enlarged lymph nodes in the supraclavicular, cervical, axillary region. ABDOMEN: No definite masses, nontender. HEART: Appears to be regular rate. LUNGS: Clear anteriorly, symmetric. No wheezes or rhonchi. EXTREMITIES: The patient does have dressing on her lower extremity. ASSESSMENT AND PLAN: 1. Cytopenia. Now that we know the bone marrow was at , we will get records from and also check Dr. Luis's note. Still need Dr. Glasgow's recent notes to see what they thought was different. Note that here the iron appears to be replete, the B12 was normal, folate is being replaced. We will check an erythropoietin level and retic count to see if the patient's kidney disease might be impairing her red cell production. We will also await records. 2. History of rheumatoid arthritis, prednisone per others. 3. Chronic kidney disease. Cautious use of medications. 4. Status post varicose vein procedure, being followed by wound care. 5. Weakness rehabilitation. We will follow with you. <ELECTRONICALLY SIGNED> By: Mamadou Cruz MD 04/23/19 0729 0741 1228 Mamadou Cruz MD /nt
[2019-04-23 07:44] VITALS: BP 116/87
--- NOTE | 2019-04-23 08:16 | NUR ---
ASSUME PT CARE AT 0700. VSS ON RA. REPORTS SLEPT GOOD. PT REQUESTS EXTERNAL FEMAL CATH LAST NIGHT TO HELP HER SLEEP BETTER WITHOUT INTERRUPTION. PT CONT BM THIS AM, HAD SMALL BM THIS AM WITH STUDENT NURSE. PT UP TO BATHROOM AND WORK WITH OT NOW. C/O LEFT LEG PAIN RATE PAIN 10. TYLENOL AND MORNING MEDS GIVEN SCHEDULE. HELD PROPRANOLOL THIS AM FOR B/P 116/87. UP WITH MOD CARO PIVOT TO . OFFERED SUPPORTIVE CARE. ENCOURAGED PT TO PARTICIPATE WITH THERAPISTS TO GET STRONGER. WILL BE DISCHARGE ON SUNDAY TO [facility]. FALL PRECAUTION IN PLACE. CONTINUE TO MONITOR.
--- NOTE | 2019-04-23 10:01 | NUR ---
WOUND CARE F/U; rounding w/ DR PÉREZ and MITESH ADAMS RN, wound beefy red, scant drainage, no odor, healing, to cont w/ npwt, reapplied w/ good seal noted at 125mmHG cont suction, tolerated well, waitstaff captain informed of care, see process intervention for wound details recommendations; cont w/ current tx
--- NOTE | 2019-04-23 12:14 | NUR ---
chart copy ordered for dcp to skilled
[2019-04-23 19:00] VITALS: BP 138/72
--- NOTE | 2019-04-24 01:04 | NUR ---
ASSESSMENT: PT REMAIN ALERT AND ORIENT TIMES FOUR. FORGETFUL AT TIMES. VSS, AFEBRILE. TURNED EVERY TWO HOURS. REFUSED EXTRNAL CATH. ON BED GOMEZ AT THE BEGINNING OF THE SHIFT. DC TO HOME SUNDAY. NO BM THUS FAR, STATES THAT SHE FEELS THAT THE ORAL CIPRO IS MAKING HER HAVE LOOSE STOOLS, FREQUENTLY. LEFT LOWER LEG WOUND INTACT WITH WOUND VAC, C/O PAIN IN THAT AREA. PRN PAIN MEDS GIVEN WITH MINIMAL RELIEF. NO FURTHER COMPLAINTS. SLOW PROGRESS TOWARDS DC GOALS. WILL CONTINUE TO MONITOR.
[2019-04-24 07:30] VITALS: BP 121/70
--- NOTE | 2019-04-24 14:35 | NUR ---
ASSUMED CARE OF PT AT 0715. PT IS A&OX4 AND VITAL SIGNS ARE STABLE. PT DENIES PAIN AND PARTICIPATED IN SCHEDULED THERAPIES. WOUND VAC INTACT. TURNED Q2H. FALL PRECAUTIONS IN PLACE AND NURSING WILL CONITNUE TO MONITOR. INITIAL TEMP ELEVATED THIIS SHIFT, WAS RECHECKED AND WAS 98.0. FALL PRECAUTION IN PLACE AND NURSING WILL CONTINUE TO MONITOR.
--- NOTE | 2019-04-24 16:58 | NUR ---
chart copy was requested yesterday for 4w to assist with and requested again today rt no chart copy complete yet. pt will be able to go by wc van to [facility]. bedside nurse to call report to [phone]. was passed on that pt sister works tomorrow at school and would like to go with her at dc, so requested by family for dc after 1530.
[2019-04-24 20:15] VITALS: BP 140/67
--- NOTE | 2019-04-25 01:28 | NUR ---
PT ALERT AND ORIENTED X 4. INCONT OF URINE. LLE WOUND VAC INTACT. SCHEDULED TYLENOL GIVEN AT HS FOR C/O PAIN IN LLE. BED ALARM ON FOR SAFETY. PT APPEARS TO BE SLEEPING ON HOURLY ROUNDS.
[2019-04-25 05:48] LABS: HEMATOCRIT 28.6 % (37.0-47.0); HEMOGLOBIN 9.2 gm/dL (12.0-15.0); MCH 30.7 pg (26.0-34.0); MCHC 32.2 g/dL (28.0-37.0); MCV 95.2 fL (80.0-100.0); PLATELET COUNT 79 thou/uL (150-400); RBC 3.01 mil/uL (4.20-5.00); RDW 16.3 % (10.5-14.5); WBC 4.8 thou/uL (4.0-11.0)
[2019-04-25] MEDS ORDERED: PROPRANOLOL 1010 MG PO (06:06)
[2019-04-25] MEDS ORDERED: CIPROFLOXACIN500 M1 PO (06:06)
[2019-04-25] MEDS ORDERED: ACIDOPHILUS1 EAC4 PO (06:06)
[2019-04-25] MEDS ORDERED: Hydrocerin Cream 4 O TOP (06:06)
[2019-04-25] MEDS ORDERED: MELATONIN5 M1 PO (06:06)
[2019-04-25] MEDS ORDERED: PROTONIX 20 MG20 M1 PO (06:06)
[2019-04-25] MEDS ORDERED: LASIX 20 MG TAB20 MG PO (06:08)
[2019-04-25 06:19] LABS: CALCIUM 8.2 mg/dL (8.5-10.1); CREATININE 1.2 mg/dL (0.6-1.0); POTASSIUM 4.3 mmol/L (3.5-5.1)
[2019-04-25 06:44] LABS: ABSOLUTE NEUTROPHILS 3.6 thou/uL (1.4-8.2); METAMYELOCYTES 2 %; MYELOCYTES 1 %; PLATELET ESTIMATE DECREASED
[2019-04-25 06:45] LABS: LARGE PLATELETS OCCASIONAL
[2019-04-25 06:46] LABS: ANISOCYTOSIS 1+; POIKILOCYTOSIS 1+
[2019-04-25 06:47] LABS: TEARDROPS FEW
[2019-04-25 06:48] LABS: MACROCYTES SLIGHT; OVALOCYTES OCCASIONAL
[2019-04-25 07:15] VITALS: BP 123/65
[2019-04-25 10:01] LABS: URINE BILIRUBIN NEGATIVE (Negative); URINE BLOOD 1+ (Negative); URINE CLARITY CLEAR; URINE COLOR YELLOW; URINE GLUCOSE-RANDOM* NEGATIVE (Negative); URINE KETONES NEGATIVE (Negative); URINE LEUKOCYTES-REFLEX NEGATIVE (Negative); URINE NITRITE-REFLEX NEGATIVE (Negative); URINE PROTEIN (DIPSTICK) TRACE (Negative); URINE UROBILINOGEN 0.2 E.U./dl (0.2-1.0)
[2019-04-25 10:10] LABS: SQUAMOUS >10 Many /LPF (0-3)
[2019-04-25 10:11] LABS: URINE RBC 0-2 Rare /HPF (0-2); YEAST-REFLEX Present (None Seen)
[2019-04-25 10:12] LABS: BACTERIA-REFLEX 1-9 Few /HPF (None Seen); CASTS None Seen /LPF (None Seen); CRYSTALS None Seen /LPF (None Seen); URINE WBC-REFLEX 0-5 Rare /HPF (0-5)
--- NOTE | 2019-04-25 11:53 | NUR ---
ASSUMED CARES AT 0700. PT AWAKE, ALERT AND ORIENTED*4. C/O LEFT BACK AND LLE PAIN 12/02. TEMP 103 AND HR 128, HOSPITALIST AND DR LEONARDO NOTIFIED AND ORDERS RECEIVED. WOUND ON LLE CLEANED AND DRESSING CHANGED, PICTURE TAKEN BY WOUNDCARE RN. PT WAS INCONTINENT OF BOWEL AND BLADDER, ANDREA CARE COMPLETED AND PT REPOSITIONED Q2H. PT TRANSFERRED TO ACUTE ROOM 455, REPORTED GIVEN TO RECEIVING RN. FAMILY NOTIFIED.
--- NOTE | 2019-04-25 12:26 | NUR ---
WOUND CARE NOTE rounding w/ SPRINKLER DRIVER DR MALISSA MASSEY present, states pt began running a fever this am, left leg, ankle edematous +3, large amt serous pinkish drainage in vac cannister, leg warm to touch and painful, wound beefy red, less slough tissue , improved from 04/23 assessment, NPWT hannah ISAACS drsg applied, gauze, abd pad, kerlix wrap, cooperative, pt being transferred back to inpt unit #[id number] aoc aadc operations staff officer informed of care
== END 2019-04-25 11:36 | disposition short-term general hospital (02) | DRG 947 ==
PROVIDERS: Hospitalist; Internal Medicine; Internal Medicine Gastroenterology; Internal Medicine Hematology & Oncology; Nurse Practitioner; Nurse Practitioner Family; Specialist; ADMIT Physical Medicine & Rehabilitation
PROC: 30233N1 Transfusion of Nonautologous Red Blood Cells into Peripheral Vein, Percutaneous Approach (ICD-10-PCS; principal; 2019-04-10)
PROC: 0DJ08ZZ Inspection of Upper Intestinal Tract, Via Natural or Artificial Opening Endoscopic (ICD-10-PCS; principal; 2019-04-10)
DX: R53.81 Other malaise (principal); E43 Unspecified severe protein-calorie malnutrition; K29.71 Gastritis, unspecified, with bleeding; L03.116 Cellulitis of left lower limb; L97.829 Non-pressure chronic ulcer of other part of left lower leg with unspecified severity; N17.9 Acute kidney failure, unspecified; D61.818 Other pancytopenia; L02.416 Cutaneous abscess of left lower limb; M06.842 Other specified rheumatoid arthritis, left hand; M06.841 Other specified rheumatoid arthritis, right hand; R41.9 Unspecified symptoms and signs involving cognitive functions and awareness; F41.9 Anxiety disorder, unspecified; I12.9 Hypertensive chronic kidney disease with stage 1 through stage 4 chronic kidney disease, or unspecified chronic kidney disease; N18.9 Chronic kidney disease, unspecified; D75.9 Disease of blood and blood-forming organs, unspecified; D63.8 Anemia in other chronic diseases classified elsewhere; K21.9 Gastro-esophageal reflux disease without esophagitis; B96.4 Proteus (mirabilis) (morganii) as the cause of diseases classified elsewhere; B96.5 Pseudomonas (aeruginosa) (mallei) (pseudomallei) as the cause of diseases classified elsewhere; B95.4 Other streptococcus as the cause of diseases classified elsewhere; B95.2 Enterococcus as the cause of diseases classified elsewhere; E83.42 Hypomagnesemia; I83.028 Varicose veins of left lower extremity with ulcer other part of lower leg; Z68.20 Body mass index [BMI] 20.0-20.9, adult; Z83.3 Family history of diabetes mellitus; Z79.899 Other long term (current) drug therapy; Z98.891 History of uterine scar from previous surgery; Z86.010 Personal history of colon polyps
CPT/HCPCS: 10112; 62110; 62900; 70005

== ENCOUNTER 2019-04-25 11:57 | Inpatient (IN) | payer OTHER, MEDICARE ==
[~2019-04-25] VITALS: Ht 162.6 cm; Wt 55.2 kg
[~2019-04-25 11:57] MED LIST changes: +ACIDOPHILUS1 EAC4 PO; +CEFEPIME 22 GM/100 M IV; +CIPROFLOXACIN500 M1 PO; +FOLIC ACID1 MG PO; +Hydrocerin Cream 4 O TOP; +MELATONIN5 M1 PO; +PROPRANOLOL 1010 MG PO; +PROTONIX 20 MG20 M1 PO; +VITAMINC500 PO; +ZINC SULFATE 2220 M1 PO
[2019-04-25 13:00] VITALS: BP 102/63
[2019-04-25 16:43] LABS: HEMATOCRIT 25.6 % (37.0-47.0); HEMOGLOBIN 8.4 gm/dL (12.0-15.0); MCHC 32.7 g/dL (28.0-37.0); MCV 94.9 fL (80.0-100.0); RBC 2.7 mil/uL (4.20-5.00); RDW 15.9 % (10.5-14.5); WBC 6.1 thou/uL (4.0-11.0)
[2019-04-25 17:06] LABS: ALBUMIN 1.6 g/dL (3.4-5.0); CALCIUM 7.9 mg/dL (8.5-10.1); CREATININE 1.3 mg/dL (0.6-1.0); MAGNESIUM 1.4 mg/dL (1.8-2.4); POTASSIUM 4.5 mmol/L (3.5-5.1); TOTAL BILIRUBIN 0.2 mg/dL (<0.1-1.0); TOTAL PROTEIN 7.7 g/dL (6.4-8.2)
[2019-04-25 17:22] LABS: TSH 0.992 uIU/mL (0.358-3.740)
--- NOTE | 2019-04-25 20:35 | NUR ---
Admitted from , transferred to room safely. On room air. Diet orderes made. Dr Lam informed that pt has been transferred to [facility] and will be needing all orders to be put in since pt has been discharged from and we cannot transfer previous orders to the floor. IV nurse called in to put IV- L Upper arm. IV antiobiotics started as ordered. With noted elevated temp- Dr Lam informed and aware- informed him that pt did not have any PRN or scheduled meds. Assisted in ADLs. Cold washcloth placed over her head to make temp go down. With leg dressing at L leg in place- C/D/I; Wound nurse informed me upon her rounds that she already took photos and did the dressing change prior of transferring the pt to the floor, kept it in place. Encouraged to eat and drink- bond trader consult placed for her wound and poor intake. Incontinent of B/B- checked frequently and changed as needed. Turned on her sides q2. Able to have a bowel movement today. Able to swallow meds w/o difficulty. Visited by relatives today. As per wound nurse, wound vac was discontinued today and to do wet to dry dressing. Pt with due US of abdomen- to place pt on NPO p midnight the will do procedure first thing in the morning- pt instructed and machinist 2nd shift nurse informed. To continue monitoring. Pt seen by infectious disease and neurology team today. IV fluid started as prescribed.
[2019-04-25 20:56] VITALS: BP 113/58
[2019-04-26 04:51] VITALS: BP 119/70
--- NOTE | 2019-04-26 04:54 | NUR ---
patient had a fever this shift, tyl given per dr. order temp is 98.8 at this time. patient incontinent this shift pericare and barrier cream applied as needed, patient turned q 2 hours as torelated. patient has been npo since midnight. pain controlled this shift. patient has a dressing on lle, drressing is c/d/i.patient in bed asleep at this time breathing regular and unlaboured.
[2019-04-26 05:00] VITALS: BP 146/57
[2019-04-26 07:08] LABS: HEMATOCRIT 22.4 % (37.0-47.0); HEMOGLOBIN 7.2 gm/dL (12.0-15.0); MCH 30.5 pg (26.0-34.0); MCHC 32.3 g/dL (28.0-37.0); MCV 94.3 fL (80.0-100.0); RBC 2.38 mil/uL (4.20-5.00); RDW 15.8 % (10.5-14.5); WBC 4.3 thou/uL (4.0-11.0)
[2019-04-26 07:17] LABS: ALBUMIN 1.4 g/dL (3.4-5.0); CALCIUM 7.4 mg/dL (8.5-10.1); CREATININE 1.2 mg/dL (0.6-1.0); TOTAL BILIRUBIN 0.2 mg/dL (<0.1-1.0); TOTAL PROTEIN 6.3 g/dL (6.4-8.2)
[2019-04-26 08:45] VITALS: BP 127/77
[2019-04-26 11:05] LABS: % SATURATION 13 % (20-39); IRON 13 ug/dL (50-170); TIBC 99 ug/dL (250-450)
--- NOTE | 2019-04-26 13:18 | NUR ---
Received awake on bed. Due medications given as prescribed, able to swallow meds w/o difficulty. A+Ox4. On room air. Complained of pain, due PRN pain meds given as prescribed. On soft, fiber restricted diet, with supplement prescribed- encouraged and assisted in eating, drinking and ADLs; no nausea, no vomiting or abdominal pain noted. Complained of itchiness- Dr Lam informed, prescribed Benadryl PO and cream for pt- given as prescribed. Vital signs stable, with scheduled tylenol prescribed. Visited by relatives today. For OT/PT evaluation. Pt w/o code status ordered- Dr Lam informed, for FULL code- ordered. Incontinent of B/B- checked frequently and changed as needed. With dressing at L leg, C/D/I. Falls risk- falls bundle in place.
[2019-04-26 15:29] VITALS: BP 156/89
[2019-04-26 19:24] VITALS: BP 143/70
[2019-04-27 04:26] VITALS: BP 180/95
[2019-04-27 04:50] LABS: HEMATOCRIT 24.4 % (37.0-47.0); HEMOGLOBIN 7.9 gm/dL (12.0-15.0); MCH 30.6 pg (26.0-34.0); MCHC 32.4 g/dL (28.0-37.0); MCV 94.4 fL (80.0-100.0); RBC 2.59 mil/uL (4.20-5.00); RDW 16.3 % (10.5-14.5); WBC 4.4 thou/uL (4.0-11.0)
[2019-04-27 05:00] LABS: ALBUMIN 1.4 g/dL (3.4-5.0); CALCIUM 7.7 mg/dL (8.5-10.1); CREATININE 1.1 mg/dL (0.6-1.0); POTASSIUM 3.9 mmol/L (3.5-5.1); TOTAL BILIRUBIN 0.2 mg/dL (<0.1-1.0)
--- NOTE | 2019-04-27 06:37 | NUR ---
PT IS ALERT AND ORIENTED X4. PT IS UP WITH X2 TO CHAIR.PT IS INCONTINENT.PT HAD TEMP OF 101.5 AND WAS RELIEVED BY TYLENOL.PT HAD BACK PAIN AND TEMP OF 100.9 THIS AM AND WAS GIVEN NARCA,PT REFUSED TO BE RECHECKED AND WANTED TO BE LEFT ALONE.PT IS ON ROOM AIR.CONTINUE TO MONITOR
[2019-04-27 15:00] VITALS: BP 154/96
[2019-04-27 19:47] VITALS: BP 128/81
--- NOTE | 2019-04-27 19:58 | NUR ---
ASSUMED CARE OF PATIENT AT 0715, PATIENT ALERT AND ORIENTED X 3-4. PATIENT TEMP IMPROVED THIS SHIFT, BUT STILL ELEVATED. DR SCOTT IN THIS AM, ORDERED CT SCAN OF PELVIC/ABDOMEN, THIS RN TOOK PATIENT DOWN IN BED FOR TEST. PATIENT HAS LEFT UPPER ARM IV IN PLACE WITH NS AT 80CC/HR AND RECEIVED IV ANTIBIOTICS THIS SHIFT. PATIENT INCONTINENT OF URINE, FEMALE CATHETER PLACED THIS SHIFT DUE TO PATIENT BEING INCONTINENT. LEFT WOUND DRESSING LOWER EXT. IN PLACE C/D/I. PATIENT ASSISTED WITH MEALS. MEW ORDER FOR MRI TOMORROW DUE TO FEVERS/AND LEFT ANKLE. WILL CONTINUE TO MONITOR.
[2019-04-27 23:23] VITALS: BP 128/81
[2019-04-28 05:58] LABS: ALBUMIN 1.3 g/dL (3.4-5.0); CALCIUM 8.1 mg/dL (8.5-10.1); CREATININE 1.2 mg/dL (0.6-1.0); MAGNESIUM 1.8 mg/dL (1.8-2.4); POTASSIUM 4.3 mmol/L (3.5-5.1); TOTAL BILIRUBIN 0.1 mg/dL (<0.1-1.0); TOTAL PROTEIN 6.5 g/dL (6.4-8.2)
[2019-04-28 06:03] LABS: HEMATOCRIT 23.3 % (37.0-47.0); HEMOGLOBIN 7.3 gm/dL (12.0-15.0); MCH 30.2 pg (26.0-34.0); MCHC 31.4 g/dL (28.0-37.0); MCV 96.1 fL (80.0-100.0); RBC 2.43 mil/uL (4.20-5.00); RDW 16.2 % (10.5-14.5); WBC 3.1 thou/uL (4.0-11.0)
--- NOTE | 2019-04-28 07:25 | NUR ---
PT IS A/O X4.PT DENIED N/V AND PAIN DURING SHIFT.PT SCHEDULED FOR MRI TODAY AND CONSENT FORM SIGNED.PT COMPLAINT OF ITCHING AND WAS GIVING BENADRYL.PT REFUSED WOUND CARE AND WANTS WOUND TEAM TO DO DRESSING
[2019-04-28 07:40] VITALS: BP 152/97
--- NOTE | 2019-04-28 07:41 | HC ---
[facility] [place] [address] CONSULTATION Name: BRANDY BARGER Room #: 455-P ADM IN M.R.#: [id number] Admission: 04/25/19 Attend Phys: Tirso Lam MD Discharge: Date of : 47 Report #: [id number] THIS REPORT FOR: //name// CC: AMANDA Glasgow [facility] physician/PCP ZIA Winchester MD REASON FOR CONSULTATION: Cytopenia. HISTORY OF PRESENT ILLNESS: This is a 74-year-old very pleasant female who used to work as a health tech at [employer], who was admitted for various reasons, mostly on ulceration and possible cellulitis after a vein procedure who was up on rehabilitation and is now transferred back down to acute care because of fevers and worrisome about infection. We had recently seen the patient for her low platelet counts. Note that the patient had [facility] probably 4 and 6 years ago, then Dr. Samuel Luis several times, I think the last was about a year and a half ago for the cytopenia. At that time, the patient had a white count that is usually between 2.5 and 5, platelets that had usually been around 130-140 or higher and then a hemoglobin that had been in the 8-9 range. 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 The patient had recently had been here and was recently found to be iron deficient. I discussed with the patient. She has had previous endoscopy; she thinks about a year and a half ago. Upper and lower did not find any worrisome changes. She is tolerating oral iron before, so we will restart her on the oral iron. We also have an erythropoietin level that is inappropriately low. Her hemoglobin had been trending up higher and we could consider putting her on this. At this time, we have nothing to suggest a malignancy. The patient at this time has her usual leg discomfort. She is concerned about whether there might have been a wire left in her leg at the time of the vein procedure. I told her it is not likely as she had a recent plain film of the ankle and also an MRI of the lower extremity/ankle that did not reveal any metallic objects. She is not aware of the fever. It looks like it is 101 last night, 100.9 this morning for more recently. Denies any specific headache, any swallowing troubles, any nausea or vomiting. She feels like she is breathing [address] [address] CONSULTATION Name: BRANDY BARGER Room #: 455-P [facility] IN ..#: [id number] Admission: 04/25/19 Attend Phys: Tirso Lam MD Discharge: Date of : 47 Report #: [id number] comfortably. No abdominal pain, no nausea or vomiting, no diarrhea, no constipation. She is not aware of any bleeding. She does admit to some leg heaviness and some overall weakness. PAST MEDICAL HISTORY: Notable for the history of rheumatoid arthritis for a large number of years, has been on prednisone and Humira for quite some time, also hypertension, chronic kidney disease; history of hemorrhagic gastritis in the past that was nonbleeding. Also, I believe she had varicose veins and peripheral edema. FAMILY HISTORY: Two children, nothing specific, 1 son has diabetes. 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 Previous to this had been in [place]. Nonsmoker, no alcohol, no street drugs. MEDICATIONS: Described by the chart currently include prednisone 5 mg every 48 hours; iron sulfate, I just began today; lactobacillus acidophilus 2 caps daily; folic acid 1 mg daily; diphenhydramine 25 mg p.o. q.6 p.r.n., also topically; melatonin 10 mg at bedtime; vitamin C 500 b.i.d.; primidone 100 b.i.d.; Tylenol 1000 b.i.d.; IV fluids; also meropenem 500 q.6 IV; pantoprazole 40 mg oral b.i.d.; micafungin sodium IV daily; vancomycin 1 g q.12.; hydrocodone 2 tabs q.4 p.r.n.; zinc sulfate 220 mg t.i.d. and MiraLax 17 grams daily p.r.n. PHYSICAL EXAMINATION: VITAL SIGNS: Height is 5 feet 4 inches, 162.6 cm; weight 121.6 pounds, which is 55.2 kilograms. Blood pressure is 180/95 that is higher than usual. Earlier yesterday had been 143/70, respirations 18, pulse 136 but I when I listened to, it is close to 100. Temperature this morning at 4:26 a.m. was 100.9. MOOD: The patient is pleasant and conversant. NEUROLOGIC: Speech and thought pattern normal. She is moving upper extremities around in bed, but she is adjusting her blankets. HEENT: Face is symmetrical. LUNGS: Clear anteriorly. No rhonchi, wheezes or rales. HEART: Appears regular rate. LYMPHATICS: No enlarged lymph nodes in the supraclavicular, cervical, axillary region. ABDOMEN: Slightly obese. No masses, nontender. EXTREMITIES: Have dressings in place. Trace edema. LABORATORY DATA: Recently include BUN 25, creatinine 1.1, AST 69, magnesium 1.9, alkaline phosphatase 339, SGPT 46, albumin 1.4, iron 13, TIBC 99, percent saturation 13. C-reactive protein a month ago 113. Recent white count 4.4, hemoglobin 7.9, which is mostly stable, though slightly down from about 9.6 earlier, but it may be from hydration, MCV 94.9, RDW 16.3, platelets 69. Note that since this admission, she has ranged for the last 2 months between 54 and [facility] [address] [place] [address] CONSULTATION Name: BRANDY BARGER Room #: 455-P [facility] IN [facility]#: [id number] Admission: 04/25/19 Attend Phys: Tirso Lam MD Discharge: Date of : 46 Report #: [id number] 101. Most of the time, she is in the 60s-80s. Differential does not show any acute changes, though 2 days ago did have some metamyelocytes and myelocytes that had appears to have settled down. Platelets are thought to be large. Absolute retic count on the 04/22/2019 was 0.0216, which is low. TSH back on 04/25/2019 was 0.992. Ferritin, 04/26/2019, 641, likely reactive. B12 recently is 83.5. Recent folate 51.8. Erythropoietin on 04/22/2019 was 22 when her hemoglobin was below 10. Recent UA had trace blood and had a number of squamous cells. A 24-hour creatinine clearance that I had ordered was canceled with the transfer. Recent imaging included ultrasound of abdomen done yesterday. Note that a CT abdomen and pelvis ordered is still pending. ASSESSMENT AND PLAN: 1. 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 We will begin oral iron and after discussion with the patient may also consider erythropoietin administration, but we will need to clarify whether the patient has renal insufficiency. 2. Fever and strep in urine. Defer multiple antibiotics to ID and others and also culture workup. 3. Rheumatoid arthritis. She is on low dose prednisone. 4. Chronic kidney disease. Monitor drug doses and function. 5. Status post varicose vein procedure and wound on the lower extremity. Defer to wound care and others. 6. Essential tremor. Continues primidone. 7. Weakness, rehabilitation therapies. <ELECTRONICALLY SIGNED> By: Mamadou Cruz MD 04/28/19 0741 0742 1004 Mamadou Cruz MD /nt
--- NOTE | 2019-04-28 14:30 | NUR ---
Nutrition: Pt assessed d/t consult for wound. Admit for sepsis, L ankle wound, lower extremity venous stasis. Familar to this pt from 03/2019 admit; after inpatient stay pt went up to 5N rehab x 18 days per EMR before readmission. L leg/L ankle ulcer documented. Since Mar, pt has gained +6.4# over 3-4 weeks from 115.2# on 03/30 to 121.6# on 04/25. Prior to recent acute events, pt states UBW of 130-135#. CBW is a healthy wt, with BMI of 20.9 kg/m2. Reports good overall intake/appetite in recent days. Completing 50-100% of most meals, w/ 68% meal average the last 2 days. Recent BM 04/27. Increased protein intake and what foods to prioritize at meals emphasized again. Plan to readd chocolate Ensure Enlive BID at breakfast, dinner (previously on). Helped modify dinner tonight to improve po success: 1/2 tuna sandwich, fries, soup, Ensure. Low nutrition risk given numerous RD visits this past month, repeat education, and appropriate interventions in place.
[2019-04-28 15:00] VITALS: BP 153/88
[2019-04-28 19:53] VITALS: BP 136/87
--- NOTE | 2019-04-28 20:19 | NUR ---
PT A&OX4, VSS, DENIES PAIN. WOUND CARE COMPLETED. MRI OF LEFT LEG COMPLETED. NO SIGNS OF DISTRESS. WILL CONTINUE TO MONITOR.
--- NOTE | 2019-04-29 04:28 | NUR ---
Assumed care of pt @1915. Pt had a restful night after she was repositioned a few times. scheduled tylenol was given for 5/10pain. dressing to leg clean, dry and intact. pt was incont x1, female ext catheter was placed and is patent. pt had no consents overnight. fall prec in place. call read within reach. will cont to monitor
[2019-04-29 05:47] LABS: RDW 16.3 % (10.5-14.5); WBC 3.3 thou/uL (4.0-11.0)
[2019-04-29 05:48] LABS: HEMATOCRIT 22.6 % (37.0-47.0); HEMOGLOBIN 7.3 gm/dL (12.0-15.0); MCHC 32.4 g/dL (28.0-37.0); MCV 95.6 fL (80.0-100.0); RBC 2.37 mil/uL (4.20-5.00)
[2019-04-29 08:12] VITALS: BP 128/64
--- NOTE | 2019-04-29 14:43 | NUR ---
DISCHARGE PLANNING. ANTICIPATED DISCHARGE PLANNED FOR TOMORROW. POST ACUTE RECOMMENDED AT DISCHARGE. PATIENT REFERRAL FAXED TO [facility], PER REQUEST. CALL PLACED TO [facility] TO NOTIFY. ACCEPTING OF PATIENT AT DISCHARGE. [facility] STATES SHE WILL NOT HAVE ANY BEDS AVAILABLE TOMORROW, WILL HAVE BED AVAILABLE FOR PATIENT ON SUNDAY. UNIT SW NOTIFIED. FOLLOWING.
[2019-04-29 15:13] VITALS: BP 136/88
--- NOTE | 2019-04-29 16:16 | NUR ---
PT ADMITTED RELATED TO SEPSIS. CM REVIEWED CHART AND SPOKE WITH CARE TEAM. CM MET WITH PT AND SISTER AT BEDSIDE THIS DAY. PT IS A&O X4. CM ROLE INTRODCUED. PT HAD BEEN ON [facility]UTE [facility] REHAB PRIOR TO THIS ADMISSION. PT WAS TO BE DISCHARGING TO [facility] THE DAY SHE ADMITTED BACK TO ACUTE FLOOR. PRIOR TO 5N STAY PT INDICATED THAT SHE LIVES IN A HOUSE WITH HER SISTER WITH 1 STEP TO ENTER AND 13 STEPS INSIDE. PT INDICATED SHE HAD USED A CANE AND A FWW TO ASSIST WITH MOBILITY MANAGER TECHNICAL. PT INDICATED SHE HAD [facility] IN THE PAST. REFERRAL SENT TO [facility] AND THEY INDICATED THAT THEY CAN HOLD A BED FOR PT TO ADMIT ON SUNDAY. CM TO FOLLOW INDICATED WITH DC PLANNING..
--- NOTE | 2019-04-29 16:44 | NUR ---
Received awake on bed. Due medications given as prescribed, able to swallow meds w/o difficulty. A+Ox3-4, forgetful. On room air. On soft low fiber diet; pt encouraged and assisted in eating and drinking. Incontinent of B/B, checked regularly and changed as needed. Able to make a bowel movement, stool specimen sent. Vital signs stable. Assisted in ADLs. Visited by relatives today. Complained of itchiness, PRN medication applied. With NS at 80cc/hr, infusing well at L upper arm. No febrile episodes noted. With wound at L ankle- dressing C/D/I.
[2019-04-29 19:43] VITALS: BP 127/72
--- NOTE | 2019-04-30 04:17 | NUR ---
ASSUMED CARE OF PT AT 1900HRS. PT IS AOX4 AND MAKES NEEDS BE KNOWN. FALL PRECAUTION IN PLACE. LEFT ANKLE WOUND DRESSING CHANGED. PT REPORTED SOME PAIN BUT DENIED NAUSEA. PT WAS INCONT THIS SHIFT. NEW FEMALE EXTERNAL CATH PLACED AND IS PATIENT. PT WAS ABLE TO GET COMFORTABLE AND SLEEP PART OF THE SHIFT. VSS AND NO S/S OF ACUTE DISTRESS. WILL CONTINUE TO MONITOR.
[2019-04-30 07:30] VITALS: BP 155/84
--- NOTE | 2019-04-30 10:51 | NUR ---
Received awake on bed. Due medications given as prescribed, able to swallow meds w/o difficulty. A+O3-4. Vital signs stable. On room air. Assisted in ADLs. Encouraged and assisted in eating and drinking. With NS at 80cc/hr, infusing well at L upper arm. Incontinent of bowel and bladder- checked regularly and changed as needed. Complained of pain and itchiness, PRN medications given as prescribed. With wound at L ankle- dressing C/D/I. CM: pt possibly to be discharged to [facility], will let me know re: transport time, US informed re: chart copy.
[2019-04-30 12:01] VITALS: BP 129/74
[2019-04-30] MEDS ORDERED: TRIAMCINOLONE A80 G2 TOP (13:52)
[2019-04-30] MEDS ORDERED: LEVAQUIN 750 M750 MG PO (13:53)
--- NOTE | 2019-04-30 14:10 | NUR ---
CARE TEAM INDICATED THAT PT IS MEDICALLY STABLE TO DC TO [facility] THIS DAY. CHART COPY ORDDERED. ORDERS FAXED. WHEELCHAIR [facility] ARRANCED FOR 1530. CM NOTIFIED PT'S SISTER. NURSE TO CALL REPORT NUMBER PROVIDED. NO OTHER CM INTERVENTION INDICATED. CASE CLOSED.
== END 2019-04-30 16:38 | DRG 871 ==
LOC: 4W 11:57
PROVIDERS: ADMIT Internal Medicine
DX: A41.9 Sepsis, unspecified organism (principal); E43 Unspecified severe protein-calorie malnutrition; K85.90 Acute pancreatitis without necrosis or infection, unspecified; L97.329 Non-pressure chronic ulcer of left ankle with unspecified severity; L03.116 Cellulitis of left lower limb; D61.818 Other pancytopenia; M05.00 Felty's syndrome, unspecified site; M06.9 Rheumatoid arthritis, unspecified; D63.8 Anemia in other chronic diseases classified elsewhere; R74.0 Nonspecific elevation of levels of transaminase and lactic acid dehydrogenase [LDH]; E83.42 Hypomagnesemia; I12.9 Hypertensive chronic kidney disease with stage 1 through stage 4 chronic kidney disease, or unspecified chronic kidney disease; N18.9 Chronic kidney disease, unspecified; D75.9 Disease of blood and blood-forming organs, unspecified; G25.0 Essential tremor; I87.2 Venous insufficiency (chronic) (peripheral); B96.4 Proteus (mirabilis) (morganii) as the cause of diseases classified elsewhere; B96.5 Pseudomonas (aeruginosa) (mallei) (pseudomallei) as the cause of diseases classified elsewhere; B95.5 Unspecified streptococcus as the cause of diseases classified elsewhere; Z79.52 Long term (current) use of systemic steroids; Z79.899 Other long term (current) drug therapy; Z98.891 History of uterine scar from previous surgery; Z68.20 Body mass index [BMI] 20.0-20.9, adult
CPT/HCPCS: 10047

== ENCOUNTER 2019-07-30 16:08 | Inpatient (IN) | payer OTHER, MEDICARE ==
[~2019-07-30] VITALS: Ht 162.6 cm; Wt 57.1 kg
--- NOTE | ~2019-07-30 | HC ---
[facility] [place] [address] CONSULTATION Name: BRANDY BARGER Room #: 458-P ADM IN M.R.#: [id number] Admission: 07/30/19 Attend Phys: Gualberto Roque MD Discharge: Date of : 47 Report #: [id number] THIS REPORT FOR: cc: Adrianne Cardenas,Edgar Mijares MD ~ CC: Gualberto Cardenas DATE OF SERVICE: 07/31/2019 WOUND CARE CONSULTATION PERSONAL PHYSICIAN: Dr. Cardenas. CHIEF COMPLAINT: Left lower extremity venous leg ulcer. HISTORY OF PRESENT ILLNESS: This is a 74-year-old black female with a longstanding history of rheumatoid arthritis, on prednisone for immunosuppression as well as a history of chronic venous leg ulcer on the left, who was admitted to the hospital for concern for infection of the left leg ulcer as well as overall generalized weakness. The patient states she does have pain in the left leg ulcer, which she describes as a burning and stabbing pain, worse with ambulation and swelling better with rest and elevation. The patient denies radiation of the pain. The patient denies any other recent new ulcerations. We have been asked to care for the ulcer while she is here in the hospital. PAST MEDICAL HISTORY: Significant for longstanding rheumatoid arthritis, hypertension, spinal stenosis, venous insufficiency, recurrent venous leg ulcers. CURRENT MEDICATIONS: Multiple, I reviewed the patient's medication list. DRUG ALLERGIES: None. SOCIAL HISTORY: The patient does not smoke. Resides in a nursing facility. FAMILY HISTORY: Not pertinent to current medical condition. REVIEW OF SYSTEMS: CONSTITUTIONAL: The patient denies fevers or chills. NEUROLOGIC: The patient complains of overall generalized weakness, but no isolated weakness in arms or legs. EYES: No complaints. ENT: No complaints. CARDIAC: The patient denies chest pain, palpitations, but does have chronic [facility] [address] [place] [address] CONSULTATION Name: BRANDY BARGER Room #: 458-[facility]#: [id number] Admission: 07/30/19 Attend Phys: Gualberto Roque MD Discharge: Date of : 46 Report #: [id number] lower extremity edema. RESPIRATORY: The patient denies shortness of breath, cough or wheezes. GASTROINTESTINAL: The patient denies nausea, vomiting or abdominal pain. GENITOURINARY: The patient denies urgency or frequency. MUSCULOSKELETAL: No complaints. SKIN: There is chronic venous leg ulcer on the left lower extremity. PHYSICAL EXAMINATION: VITAL SIGNS: Temperature 37.8, pulse 99, respirations 17, BP 127/80. GENERAL: This is an alert and oriented x 3, pleasant, elderly black female who is chronically ill appearing. HEENT: Normocephalic, atraumatic. Mucous membranes are dry. Pupils are round. Sclerae white. NECK: Supple and nontender. LUNGS: Slight diminished breath sounds heard throughout, but no rhonchi, no wheezes. CHEST: Nontender. HEART: Regular. ABDOMEN: Soft, nontender. EXTREMITIES: The patient moves all extremities spontaneously. The patient has rheumatologic changes of her hand and fingers. Evaluation of the left lower extremity reveals venous leg ulcer, which is fairly clean and granulating. There are no signs of significant tunneling or undermining. Periwound is intact, if not slightly dry. There is a moderate amount of serosanguineous drainage noted without significant odor. Bilateral heels are intact. No other associated ulcerations are noted on either lower extremity. Evaluation of sacrococcygeal region reveals no signs of any open ulcerations. NEUROLOGIC: Cranial nerves 2-12 grossly intact. Motor and sensory grossly intact. LABORATORY DATA: White count 3.7, hemoglobin 8.8. BUN 16, creatinine 1.0, albumin 1.9. IMPRESSION: 1. Chronic ulceration, left lateral lower extremity secondary to #2. 2. Venous insufficiency with edema. 3. Generalized weakness. 4. Protein-calorie malnutrition -- severe with albumin 1.9. 5. Generalized debility. 6. Advanced rheumatoid arthritis, on immunosuppression with prednisone. PLAN: At this time, we will start the patient on morphine, Silvadene cream to the left lower extremity leg ulcer, Cover this with Xeroform and ABD changes daily. We will use Kerlix and Robert wrap for control of mild edema. We will have the patient to elevate her legs as much as possible. We will maximize the patient's oral protein supplementation for healing. We will utilize physical [address] [address] CONSULTATION Name: CHARBELBRANDY J Room #: 458-P [facility] IN M.R.#: [id number] Admission: 07/30/19 Attend Phys: Gualberto Roque MD Discharge: Date of : 47 Report #: [id number] and occupational therapy as able for help with strengthening. Continue all other current medications and we will continue to follow the patient. By: 1620 [id number] Edgar Redmond MD /bonnie
[~2019-07-30 16:08] MED LIST changes: +LEVAQUIN 750 M750 MG PO; +TRIAMCINOLONE A80 G2 TOP
[2019-07-30 16:10] VITALS: BP 148/61
[2019-07-30 16:34] LABS: HEMATOCRIT 23.6 % (37.0-47.0); HEMOGLOBIN 7.7 gm/dL (12.0-15.0); MCH 30.7 pg (26.0-34.0); MCHC 32.4 g/dL (28.0-37.0); MCV 94.7 fL (80.0-100.0); RBC 2.49 mil/uL (4.20-5.00); RDW 14.7 % (10.5-14.5); WBC 3.8 thou/uL (4.0-11.0)
[2019-07-30 16:42] LABS: CALCIUM 7.7 mg/dL (8.5-10.1); CREATININE 1.1 mg/dL (0.6-1.0); POTASSIUM 4.2 mmol/L (3.5-5.1)
[2019-07-30 17:08] LABS: ALBUMIN 1.8 g/dL (3.4-5.0); DIRECT BILIRUBIN < 0.1 mg/dL (<0.1-0.2); LIPASE 968 U/L (73-393); SGOT 54 U/L (15-37); SGPT 22 U/L (30-65); TOTAL BILIRUBIN 0.2 mg/dL (<0.1-1.0)
[2019-07-30 17:20] LABS: TOTAL PROTEIN 8.1 g/dL (6.4-8.2)
[2019-07-30 17:43] LABS: ABSOLUTE NEUTROPHILS 2.9 thou/uL (1.4-8.2); ATYPICAL LYMPHS 1 %
[2019-07-30 17:44] LABS: ANISOCYTOSIS 1+; PLATELET COUNT 91 thou/uL (150-400)
[2019-07-30 20:22] VITALS: BP 136/66
[2019-07-30 20:28] VITALS: BP 130/76
[2019-07-30 20:50] VITALS: BP 144/79
[2019-07-30 22:18] LABS: URINE BILIRUBIN NEGATIVE (Negative); URINE BLOOD TRACE (Negative); URINE CLARITY CLEAR; URINE COLOR YELLOW; URINE GLUCOSE-RANDOM* NEGATIVE (Negative); URINE KETONES NEGATIVE (Negative); URINE LEUKOCYTES-REFLEX TRACE (Negative); URINE NITRITE-REFLEX NEGATIVE (Negative); URINE PROTEIN (DIPSTICK) NEGATIVE (Negative); URINE SPECIFIC GRAVITY <= 1.005 (1.005-1.035); URINE UROBILINOGEN 0.2 E.U./dl (0.2-1.0)
[2019-07-30 23:53] VITALS: BP 160/94
[2019-07-31] MEDS ORDERED: MELATONIN3 M1 PO (00:23)
[2019-07-31] MEDS ORDERED: MENTHOL-ZINC O113 GM TOP (00:24)
[2019-07-31 04:28] VITALS: BP 141/69
[2019-07-31 05:55] LABS: HEMATOCRIT 27.5 % (37.0-47.0); HEMOGLOBIN 8.8 gm/dL (12.0-15.0); MCH 30.4 pg (26.0-34.0); MCHC 32.2 g/dL (28.0-37.0); MCV 94.6 fL (80.0-100.0); RBC 2.9 mil/uL (4.20-5.00); RDW 14.7 % (10.5-14.5); WBC 3.7 thou/uL (4.0-11.0)
[2019-07-31 07:34] LABS: ALBUMIN 1.9 g/dL (3.4-5.0); CALCIUM 7.9 mg/dL (8.5-10.1); TOTAL BILIRUBIN 0.3 mg/dL (<0.1-1.0); TOTAL PROTEIN 8.2 g/dL (6.4-8.2)
--- NOTE | 2019-07-31 07:51 | NUR ---
ASSUMED PT CARE AROUND 1914. AXOX3. WOUND PICTURE TAKEN. INITAL TX DONE. BLE ELEVATED. PAIN MANAGED PER MD ORDER. D/T BUE CONSTRACTURES, PT UNABLE TO SIGN CONSENTS. NO S/S ACUTE DISTRESS NOTED OR REPORTED AT THIS TIME. CARE TRANSFERRED TO INCOMING RN AT THIS TIME.
[2019-07-31 08:29] VITALS: BP 123/62
--- NOTE | 2019-07-31 20:19 | NUR ---
PT A&OX4, VSS, PAIN IN LEFT LOWER LEG. PAIN MEDICATION GIVEN. WOUND CARE COMPLETED, PATIENT TURNED Q2. NO SIGNS OF DISTRESS. WILL CONTINUE TO MONITOR.
[2019-07-31 21:50] VITALS: BP 122/59
[2019-08-01 04:09] VITALS: BP 119/71
--- NOTE | 2019-08-01 06:00 | NUR ---
Addessments completed. pt a&ox3. max assist with care. q2hr turns. tylenol given for back pain which was effect. pt incont on both bowel and bladder. staff to anticipate pt needs. no s/s of distress. repots off to day shift nurse
[2019-08-01 08:10] VITALS: BP 127/80
[2019-08-01 13:13] VITALS: BP 98/61
--- NOTE | 2019-08-01 14:23 | NUR ---
PT ADMITTED RELATED TO WOUND CHECK. CM REVIEWED CHART AND SPOKE WITH CARE TEAM. CM MET WITH PT AT BEDSIDE THIS DAY. PT IS A&O X4. CM ROLE INTRODUCED. PT INDICATED SHE HAD BEEN SKILLED AT [facility]. PT INDICATED SHE HOPES TO RETURN HOME THERE ONCE MEDICALLY STABLE. CLINICAL UPDATE SENT TO THE FACILITY. CM TO FOLLOW INDICATED WITH DC PLANNING.
[2019-08-01 19:29] VITALS: BP 128/67
--- NOTE | 2019-08-01 19:29 | HC ---
[facility] [address] CONSULTATION Name: BRANDY BARGER Room #: 458-P ADM IN M.R.#: [id number] Admission: 07/30/19 Attend Phys: Gualberto Roque MD Discharge: Date of : 47 Report #: [id number] THIS REPORT FOR: cc: Adrianne Cardenas,Matt Eaton MD ~ CC: Gualberto Cardenas DATE OF SERVICE: 07/31/2019 INFECTIOUS DISEASE CONSULTATION REASON FOR CONSULTATION: Evaluate left lower extremity wound infection in the setting of rheumatoid arthritis and immunosuppression. HISTORY OF PRESENT ILLNESS: The patient is a 74-year-old with a long history of rheumatoid arthritis, on prednisone immunosuppression with Felty syndrome, venous stasis disease and chronic wound to the left lower extremity. She has had low-grade fever and generalized weakness. Denies any headache, cough, sputum, nausea, vomiting or abdominal pain. No dysuria or frequency. She was hospitalized due to progressive weakness and failure of her wound to heal. She has a fair amount of pain involving the left lower extremity. She does take narcotics for this. Rates the pain up to an 8. REVIEW OF SYSTEMS: A 10-point review of system was negative other than what has been described above. ALLERGIES: None known. MEDICATIONS: As noted on her MAR including prednisone, primidone, melatonin, Lopressor. PAST MEDICAL HISTORY: Rheumatoid arthritis, hypertension, back surgery, spinal stenosis, bilateral foot surgeries, C-sections, lower extremity cellulitis, Felty syndrome with chronic cytopenias. FAMILY HISTORY: Noncontributory. SOCIAL HISTORY: Nonsmoker, no significant alcohol intake, currently resides at a retirement facility. REVIEW OF SYSTEMS: A 10-point review of system was negative other than what has been reported above. PHYSICAL EXAMINATION: [facility] [address] [place] [address] CONSULTATION Name: BRANDY BARGER Room #: 458-P [facility] IN [facility]#: [id number] Admission: 07/30/19 Attend Phys: Gualberto Roque MD Discharge: Date of : 47 Report #: [id number] VITAL SIGNS: She was afebrile and hemodynamically stable. GENERAL: She was alert and cooperative, but generally weak. She had advanced rheumatoid arthritis changes. SKIN: With extensive wound to the left lower leg. There was granulation tissue present. There was surrounding erythema. There was no purulent drainage. There was moderate pain and tenderness to this region. Pulses were palpable. She had pain and tenderness that involved the posterior calf midway. No groin adenopathy. EYES: Without scleral icterus. MOUTH: Without mucositis. NECK: Supple. LUNGS: Clear. HEART: Regular without murmur, gallop or rub. ABDOMEN: Soft, nontender with no hepatosplenomegaly or mass. EXTREMITIES: She had extensive changes of rheumatoid arthritis to both upper and lower extremities. Sensation in her toes to fine touch was within normal limits. PSYCHIATRIC: Mood was flat. BACK: Nontender. Laboratories reviewed. Cultures reviewed. IMPRESSION: 1. Rheumatoid arthritis with Felty syndrome and on immunosuppression with prednisone. 2. Left lower extremity nonhealing wound with venous stasis disease, most likely etiology. I have not totally rule out underlying rheumatoid vasculitis. 3. Elevated lipase. 4. Malnutrition. 5. Hypertension. 6. Anemia, thrombocytopenia. RECOMMENDATIONS: We will continue broad antibiotic coverage. Await repeat cultures. Continue with localized wound care and compression. Treat rheumatoid arthritis. May need tissue biopsy if no improvement. Follow lipase and check CT scan of the abdomen. <ELECTRONICALLY SIGNED> By: Matt Montes MD 08/01/19 [id number] Matt Montes MD /nt
--- NOTE | 2019-08-01 19:52 | NUR ---
Assumedp t care this am, q2 turns and heels of the bed done through out the shift. wound culture sample done and sent to the lab. Pain is managed with medication. Pt is a feeder , hydration encouraged. Wound care done. Isolation maintained, no nausea or vomiting noted. POC followed, no signs or verbalizations of distress. Endorsed to the night nurse.
--- NOTE | 2019-08-02 04:31 | NUR ---
No acute changes overnight. pt slept well with interruptions in between to use bathroon and repositionx. extremities elevated with pillows. wound dressing clean dry and intact. v/s stable. no s/s of distress. will cont to monitor
[2019-08-02 07:27] VITALS: BP 120/80
[2019-08-02 14:44] VITALS: BP 126/72
--- NOTE | 2019-08-02 19:14 | NUR ---
Assumed pt care at 7am.Assessment completed.vss.Pt assisted with feeding at all meals.Good appetite noted at breakfast but refused lunch.Family here most of the time this shift,updates given.Dr Roque and Simon here.Drsg change done to left leg wound as ordered.Tylenol po given for pain with relief.Will continue to monitor.
[2019-08-02 19:45] VITALS: BP 94/43
--- NOTE | 2019-08-03 06:53 | NUR ---
Pt. rested quietly at intervals during the night when checked on during frequent rounds. She did c/o pain to her left lower leg and po pain meds given (see emar) with some relief noted. Pt. turned and repositioned during the shift. Dressing to left lower leg is dry and intact. Bed alarm is on.
[2019-08-03 08:33] VITALS: BP 128/72
--- NOTE | 2019-08-03 11:04 | NUR ---
Assumed pt care at 7am.Pt in bed sound asleep till breakfast time.Assessment completed.vss.Assisted pt with feeding.Good appetite.Pt tolerated meds. Reposition q2h for comfort.Pt requested for drsg change later this shift. Resting comfortable in bed without c/o.Will continue to monitor.
[2019-08-03 16:45] VITALS: BP 102/58
[2019-08-03 19:46] VITALS: BP 118/67
--- NOTE | 2019-08-04 06:08 | NUR ---
Pt. rested quietly at intervals during the night when checked on during frequent rounds. She c/o left lower extremity pain and was given po pain med (see emar) with some relief noted. Pt. turned and repositioned for comfort. Bed alarm is on.
[2019-08-04 08:00] VITALS: BP 148/92
[2019-08-04 15:00] VITALS: BP 126/74
--- NOTE | 2019-08-04 15:36 | NUR ---
DISCHARGE PLANNING. PATIENT ADMITTED FROM [facility]. PLAN IS FOR PATIENT TO RETURN TO [facility]ILL[facility]. PATIENT CLINICALS FAXED TO [facility] ADMISSIONS. UNIT SW AWARE.
[2019-08-04] MEDS ORDERED: LINEZOLID600 MG PO (16:21)
--- NOTE | 2019-08-04 16:56 | NUR ---
CARE TEAM INDICATED THAT PT IS MEDICALLY STABLE TO [place] BACK [place] [facility] [place] CHART COPY ORDERED. ORDERS FAXED. TRNSAPORT ARRANGED FOR 1800. CM NOTIFIED PT'S SISTER. NO OTHER CM INTERVETNION INDICATED. CASE CLOSED.
--- NOTE | 2019-08-04 21:05 | NUR ---
PT DISCHARGED TO SNF, PT A&OX4, VSS, DENIED PAIN. IV REMOVED FROM PATIENT, NO SIGNS OF DISTRESS, DRESSING CHANGED. BELONGINGS TAKEN BY DAUGHTER AND SISTER TO FACILITY.
== END 2019-08-04 18:22 | DRG 592 ==
LOC: ER 16:08 → EROBS 20:12 → 4W 20:12
PROVIDERS: Nurse Practitioner; Nurse Practitioner Family; ADMIT Hospitalist
DX: L97.329 Non-pressure chronic ulcer of left ankle with unspecified severity (principal); E43 Unspecified severe protein-calorie malnutrition; K85.90 Acute pancreatitis without necrosis or infection, unspecified; N17.9 Acute kidney failure, unspecified; D61.818 Other pancytopenia; M06.9 Rheumatoid arthritis, unspecified; I10 Essential (primary) hypertension; M48.00 Spinal stenosis, site unspecified; D63.8 Anemia in other chronic diseases classified elsewhere; D69.6 Thrombocytopenia, unspecified; R74.0 Nonspecific elevation of levels of transaminase and lactic acid dehydrogenase [LDH]; M05.00 Felty's syndrome, unspecified site; G47.00 Insomnia, unspecified; Z68.21 Body mass index [BMI] 21.0-21.9, adult; Z79.891 Long term (current) use of opiate analgesic; Z98.1 Arthrodesis status; Z79.899 Other long term (current) drug therapy
CPT/HCPCS: 10040; 10045

== ENCOUNTER 2019-08-15 14:34 | Emergency (ER) | payer OTHER, MEDICARE ==
[~2019-08-15] VITALS: Ht 152.4 cm; Wt 61.2 kg
[~2019-08-15 14:34] MED LIST changes: +LINEZOLID600 MG PO; +MELATONIN3 M1 PO; +MENTHOL-ZINC O113 GM TOP
[2019-08-15 16:03] LABS: ABSOLUTE NEUTROPHILS 1.6 thou/uL (1.4-8.2); BASOPHILS 1.2 % (0.0-2.0); HEMATOCRIT 23.4 % (37.0-47.0); HEMOGLOBIN 7.6 gm/dL (12.0-15.0); MCH 31.2 pg (26.0-34.0); MCHC 32.4 g/dL (28.0-37.0); MCV 96.5 fL (80.0-100.0); MONOCYTES 11.9 % (1.0-8.0); PLATELET COUNT 81 thou/uL (150-400); POLYS 45.9 % (36.0-66.0); RBC 2.42 mil/uL (4.20-5.00); WBC 3.5 thou/uL (4.0-11.0)
[2019-08-15 18:27] VITALS: BP 160/81
== END 2019-08-15 19:00 ==
LOC: ER 14:34
PROVIDERS: Emergency Medicine
DX: D64.89 Other specified anemias (principal); I10 Essential (primary) hypertension; M06.9 Rheumatoid arthritis, unspecified; Z98.890 Other specified postprocedural states